=== PATIENT | female | born 1955 | race African-American/Black ===

== ENCOUNTER → 2017-01-03 | Outpatient (CLI) | payer OTHER ==
[~2017-01-03] MED LIST: AMMO12CR4 EXT; ASPI1TAB PO; ASPI81CH PO; BACL5TA PO; CIPR-250 PO; CIPR500T89 PO; CYCL5TA PO; FLAG500T PO; GABA-283 PO; INSUDET SC; INSUH10VL SC; INSULANT SC; LEVA750T PO; LIDO5TD TD; LISI-542 PO; NAPR1TAB86 PO; NEUR300C PO; NORC10TA2 PO; NORC5TAB PO; PERCOCET PO; PROP50TA3 PO; [UNRECOGNIZED DRUG - REMARK]; flexeril PO
[2017-01-03 14:20] LABS: MEAN CORPUSCULAR HEMOGLOBIN 31.3 pg (27.0-33.0); MEAN CORPUSCULAR HGB CONC 32.7 g/dl (32.0-36.5); MEAN CORPUSCULAR VOLUME 95.6 fl (80.0-96.0); RED CELL DISTRIBUTION WIDTH 13.2 % (11.5-14.5); WHITE BLOOD COUNT 9.2 K/mm3 (4.0-10.0)
[2017-01-03 14:40] LABS: ANION GAP 7 MEQ/L (8-16); BLOOD UREA NITROGEN 15 MG/DL (7-18); CALCIUM LEVEL 8.5 MG/DL (8.8-10.2); CARBON DIOXIDE LEVEL 27 MEQ/L (21-32); CHLORIDE LEVEL 109 MEQ/L (98-107); GLOMERULAR FILTRATION RATE > 60.0 (>45); GLUCOSE, FASTING 134 MG/DL (80-110); POTASSIUM SERUM 4.3 MEQ/L (3.5-5.1); SODIUM LEVEL 143 MEQ/L (136-145)
== END ==
LOC: M LAB 13:31
PROVIDERS: ATTEND Urology
DX: Q61.00 Congenital renal cyst, unspecified (principal)

== ENCOUNTER → 2017-01-03 | Outpatient (CLI) | payer OTHER ==
[2017-01-03 14:50] LABS: CHOLESTEROL LEVEL 145 MG/DL (<200); FREE T4 1.22 NG/DL (0.76-1.46); TRIGLYCERIDES LEVEL 143 MG/DL (<150)
[2017-01-09 00:06] LABS: FREE KAPPA LIGHT CHAINS SERUM 43.94 mg/L (3.30-19.40); FREE KAPPA LIGHT CHAINS URINE 36.3 mg/L (1.35-24.19); FREE LAMBDA LIGHT CHAINS SERUM 27.5 mg/L (5.71-26.30); FREE LAMBDA LIGHT CHAINS URINE 3.24 mg/L (0.24-6.66); KAPPA/LAMBDA RATIO SERUM 1.6 (0.26-1.65); VITAMIN D 1,25 DIHYDROXY 40.2 pg/mL (19.9-79.3)
== END ==
LOC: M LAB 13:34
PROVIDERS: ATTEND Hospitalist
DX: S32.000D Wedge compression fracture of unspecified lumbar vertebra, subsequent encounter for fracture with routine healing (principal)

== ENCOUNTER 2017-01-27 19:31 | Emergency (ER) | payer MEDICAID, OTHER, SELFPAY ==
[~2017-01-27] VITALS: Ht 180.3 cm; Wt 96.2 kg
[~2017-01-27 19:31] MED LIST changes: +NORC1TAB4 PO; -NORC5TAB PO
[2017-01-27 19:32] VITALS: BP 134/63
[2017-01-27] MEDS ORDERED: INSUDET SC (19:48)
[2017-01-27] MEDS ORDERED: VITA100037 PO (19:48)
[2017-01-27] MEDS ORDERED: ATOR40TA PO (19:48)
[2017-01-27] MEDS ORDERED: ETOD200C31 PO (20:33)
[2017-01-27] MEDS ORDERED: ROBA500T PO (20:34)
== END 2017-01-27 20:48 | disposition home or self-care (01) ==
LOC: M ED 20:29
DX: G89.29 Other chronic pain (principal); M54.5 Low back pain

== ENCOUNTER → 2017-03-29 | Outpatient (CLI) | payer OTHER, MEDICAID ==
[~2017-03-29] MED LIST changes: +ATOR40TA PO; +ETOD200C31 PO; +ROBA500T PO; +VITA100037 PO
[2017-03-29 17:41] LABS: ANION GAP 6 MEQ/L (8-16); BLOOD UREA NITROGEN 16 MG/DL (7-18); CALCIUM LEVEL 9.5 MG/DL (8.8-10.2); CARBON DIOXIDE LEVEL 29 MEQ/L (21-32); CHLORIDE LEVEL 105 MEQ/L (98-107); CREATININE FOR GFR 0.86 MG/DL (0.55-1.02); GLOMERULAR FILTRATION RATE > 60.0 (>45); GLUCOSE, FASTING 232 MG/DL (80-110); SODIUM LEVEL 140 MEQ/L (136-145)
[2017-03-29 17:42] LABS: POTASSIUM SERUM 5.3 MEQ/L (3.5-5.1)
[2017-03-29 18:26] LABS: MEAN CORPUSCULAR HEMOGLOBIN 32.1 pg (27.0-33.0); MEAN CORPUSCULAR HGB CONC 32.1 g/dl (32.0-36.5); MEAN CORPUSCULAR VOLUME 100.2 fl (80.0-96.0); RED CELL DISTRIBUTION WIDTH 13.5 % (11.5-14.5); WHITE BLOOD COUNT 8.4 K/mm3 (4.0-10.0)
== END ==
LOC: M SMT 14:40
PROVIDERS: ATTEND Urology
DX: N28.89 Other specified disorders of kidney and ureter (principal)

== ENCOUNTER → 2017-04-27 | Outpatient (CLI) | payer OTHER, MEDICAID ==
--- NOTE | 2017-04-27 15:04 | REP ---
LEFT SHOULDER, THREE VIEWS: HISTORY: Pain. There is no acute fracture or dislocation. There is narrowing of the acromioclavicular join space with associated osteophyte formation. IMPRESSION: Degenerative change as described above. Signed by Phani Morales MD 04/27/2017 03:08 P
[2017-04-27 15:55] LABS: ANION GAP 7 MEQ/L (8-16); BLOOD UREA NITROGEN 17 MG/DL (7-18); CALCIUM LEVEL 8.6 MG/DL (8.8-10.2); CARBON DIOXIDE LEVEL 27 MEQ/L (21-32); CHLORIDE LEVEL 109 MEQ/L (98-107); CHOLESTEROL LEVEL 150 MG/DL (<200); CREATININE FOR GFR 0.79 MG/DL (0.55-1.02); GLOMERULAR FILTRATION RATE > 60.0 (>45); GLUCOSE, FASTING 87 MG/DL (80-110); POTASSIUM SERUM 4.5 MEQ/L (3.5-5.1); SODIUM LEVEL 143 MEQ/L (136-145); TRIGLYCERIDES LEVEL 135 MG/DL (<150)
[2017-04-27 16:25] LABS: BASO % 0.4 % (0.0-1.0); EOS # 0.2 K/mm3 (0.0-0.50); EOS % 2.2 % (0.0-3.0); LARGE UNSTAINED CELL # 0.1 K/mm3 (0.0-0.4); LARGE UNSTAINED CELL % 1.6 % (0.0-4.0); LYMPH # 2.9 K/mm3 (1.5-4.5); LYMPH % 30.9 % (24.0-44.0); MEAN CORPUSCULAR HEMOGLOBIN 31.6 pg (27.0-33.0); MEAN CORPUSCULAR HGB CONC 32.7 g/dl (32.0-36.5); MEAN CORPUSCULAR VOLUME 96.8 fl (80.0-96.0); MONO # 0.6 K/mm3 (0.0-0.8); NEUTROPHILS # 5.2 K/mm3 (1.8-7.7); PLATELET COUNT, AUTOMATED 198 k/mm3 (150-450); RED CELL DISTRIBUTION WIDTH 13.9 % (11.5-14.5); WHITE BLOOD COUNT 8.9 K/mm3 (4.0-10.0)
[2017-04-27 16:35] LABS: ANION GAP 7 MEQ/L (8-16); BLOOD UREA NITROGEN 17 MG/DL (7-18); CALCIUM LEVEL 8.7 MG/DL (8.8-10.2); CARBON DIOXIDE LEVEL 27 MEQ/L (21-32); CHLORIDE LEVEL 111 MEQ/L (98-107); GLOMERULAR FILTRATION RATE > 60.0 (>45); GLUCOSE, FASTING 85 MG/DL (80-110); POTASSIUM SERUM 4.5 MEQ/L (3.5-5.1); SODIUM LEVEL 145 MEQ/L (136-145)
[2017-04-27 17:08] LABS: MEAN CORPUSCULAR HEMOGLOBIN 31.9 pg (27.0-33.0); MEAN CORPUSCULAR HGB CONC 32.5 g/dl (32.0-36.5); RED CELL DISTRIBUTION WIDTH 13.7 % (11.5-14.5); WHITE BLOOD COUNT 9.8 K/mm3 (4.0-10.0)
== END ==
LOC: M LAB 13:39
PROVIDERS: ATTEND Hospitalist
DX: E11.9 Type 2 diabetes mellitus without complications (principal); M25.512 Pain in left shoulder

== ENCOUNTER → 2017-06-21 | Outpatient (CLI) | payer MEDICARE, OTHER ==
[~2017-06-21] MED LIST changes: -ATOR40TA PO; +ATOR40TA75 PO; +BACL10TA5 PO; -BACL5TA PO; +CIPR-249 PO; -CIPR500T89 PO; +CYCL5TAB PO; +DULO1CAP3 PO; -LEVA750T PO; +LEVA750T7 PO; +LIPI10TA PO; +LORA10TA2 PO; -NORC10TA2 PO; +NORC10TA21 PO; +OXYC1TAB23 PO; +TOUJ1.2I SC; +TRUL0.5I SC; -VITA100037 PO; +VITA100067 PO
[2017-06-21 15:21] LABS: ANION GAP 5 MEQ/L (8-16); BLOOD UREA NITROGEN 15 MG/DL (7-18); CALCIUM LEVEL 8.6 MG/DL (8.8-10.2); CARBON DIOXIDE LEVEL 27 MEQ/L (21-32); CHLORIDE LEVEL 111 MEQ/L (98-107); CHOLESTEROL LEVEL 131 MG/DL (<200); CREATININE FOR GFR 0.84 MG/DL (0.55-1.02); GLOMERULAR FILTRATION RATE > 60.0 (>45); GLUCOSE, FASTING 48 MG/DL (80-110); POTASSIUM SERUM 4.3 MEQ/L (3.5-5.1); SODIUM LEVEL 143 MEQ/L (136-145); TRIGLYCERIDES LEVEL 83 MG/DL (<150)
[2017-06-21 15:49] LABS: BASO % 0.5 % (0.0-1.0); EOS # 0.3 K/mm3 (0.0-0.50); EOS % 3.1 % (0.0-3.0); LARGE UNSTAINED CELL # 0.2 K/mm3 (0.0-0.4); LARGE UNSTAINED CELL % 1.8 % (0.0-4.0); LYMPH # 3.4 K/mm3 (1.5-4.5); LYMPH % 32.7 % (24.0-44.0); MEAN CORPUSCULAR HEMOGLOBIN 31.6 pg (27.0-33.0); MEAN CORPUSCULAR HGB CONC 32.3 g/dl (32.0-36.5); MEAN CORPUSCULAR VOLUME 97.8 fl (80.0-96.0); MONO # 0.8 K/mm3 (0.0-0.8); MONO % 7.9 % (0.0-5.0); NEUTROPHILS # 5.3 K/mm3 (1.8-7.7); PLATELET COUNT, AUTOMATED 216 k/mm3 (150-450); RED CELL DISTRIBUTION WIDTH 14.4 % (11.5-14.5); WHITE BLOOD COUNT 9.8 K/mm3 (4.0-10.0)
== END ==
LOC: M LAB 14:08
DX: E11.9 Type 2 diabetes mellitus without complications (principal)

== ENCOUNTER → 2017-07-30 | Outpatient (CLI) | payer MEDICARE, OTHER ==
--- NOTE | 2017-07-30 15:35 | REPMRS ---
Patient History The patient states she has not had a clinical breast exam in over a year. Patient is postmenopausal and has history of other cancer at age 60. No known family history of cancer. Digital Mammo Screening Bilat: July 30, 2017 - Exam #: [id number] Bilateral CC and MLO view(s) were taken. Technologist: Alia Palmer Technologist Prior study comparison: July 14, 2016, bilateral digital mammo screening bilat performed at [facility]. FINDINGS: There are scattered fibroglandular densities. There has been no change in the appearance of the mammogram from the prior studies. There is a mild amount of residual fibroglandular tissue which is fairly symmetric. There is no interval development of dominant mass, architectural distortion, or clustered microcalcification suggestive of malignancy. ASSESSMENT: BI-RADS/ACR category 1 mammogram. Negative. Recommendation Routine screening mammogram in 1 year (for women over age 40). This mammogram was interpreted with the aid of an FDA-approved computer-aided dectection system. Electronically Signed By: Francesco Will MD 07/30/17 [id number]
== END ==
LOC: M RAD 07-09 10:37
PROVIDERS: ATTEND Hospitalist
DX: Z00.00 Encounter for general adult medical examination without abnormal findings (principal)

== ENCOUNTER 2017-08-16 07:13 | Outpatient (CLI) | payer MEDICARE, OTHER, MEDICAID ==
[~2017-08-16] VITALS: Ht 180.3 cm; Wt 104.3 kg
[2017-08-16] MEDS ORDERED: NS 1,000 ML IV SCH (07:30)
[2017-08-16] MEDS ORDERED: PROPOFOL 200 MG/20 ML VIAL As Ordered ONE (08:37)
[2017-08-16] MEDS ORDERED: LIDOCAINE 2% INJ 100 MG/5 ML SDV (FOR ANES.) As Ordered ONE (08:37)
--- NOTE | 2017-08-16 09:10 | ROOR ---
Patient Name: Chloe Chery Procedure Date: 08/16/2017 8:32 AM Date of : 1955 Age: 62 Room: [facility] Gender: Female Note Status: Finalized Procedure: Colonoscopy Indications: Screening for colorectal malignant neoplasm Providers: Conor Marcial Jr, MD Referring MD: Hyun Alarcon Requesting Provider: Medicines: Propofol per Anesthesia Complications: No immediate complications. Procedure: Pre-Anesthesia Assessment: - Prior to the procedure, a History and Physical was performed, and patient medications and allergies were reviewed. The patient is competent. The risks and benefits of the procedure and the sedation options and risks were discussed with the patient. All questions were answered and informed consent was obtained. Patient identification and proposed procedure were verified by the physician and the nurse in the pre-procedure area and in the procedure room. Mental Status Examination: alert and oriented. Airway Examination: normal oropharyngeal airway and neck mobility. Respiratory Examination: clear to auscultation. CV Examination: normal. ASA Grade Assessment: II - A patient with mild systemic disease. After reviewing the risks and benefits, the patient was deemed in satisfactory condition to undergo the procedure. The anesthesia plan was to use moderate sedation / analgesia (conscious sedation). Immediately prior to administration of medications, the patient was re-assessed for adequacy to receive sedatives. The heart rate, respiratory rate, oxygen saturations, blood pressure, adequacy of pulmonary ventilation, and response to care were monitored throughout the procedure. The physical status of the patient was re-assessed after the procedure. The Colonoscope was introduced through the anus and advanced to the cecum, identified by appendiceal orifice and ileocecal valve. The colonoscopy was performed without difficulty. The patient tolerated the procedure well. Findings: Five semi-sessile polyps were found in the rectum, sigmoid colon, descending colon, transverse colon and ascending colon. The polyps were small in size. These polyps were removed with a hot snare. Resection and retrieval were complete. Multiple small and large-mouthed diverticula were found in the sigmoid colon. The recto-sigmoid colon, cecum, appendiceal orifice, ileocecal valve and ileum appeared normal. Impression: - Five small polyps in the rectum, in the sigmoid colon, in the descending colon, in the transverse colon and in the ascending colon, removed with a hot snare. Resected and retrieved. - Diverticulosis in the sigmoid colon. - The recto-sigmoid colon, cecum, appendiceal orifice, ileocecal valve and terminal ileum are normal. Recommendation: - Discharge patient to home (ambulatory). - Repeat colonoscopy in 3 - 5 years for surveillance based on pathology results. Conor Marcial MD Conor Marcial Jr, MD 08/16/2017 9:09:43 AM This report has been signed electronically. Number of Addenda: 0 Note Initiated On: 08/16/2017 8:32 AM Estimated Blood Loss: Estimated blood loss: none.
[2017-08-16 09:31] VITALS: BP 174/85
== END 2017-08-16 09:40 | disposition home or self-care (01) ==
LOC: M OPP 07:13
PROVIDERS: ATTEND Surgery
DX: Z12.11 Encounter for screening for malignant neoplasm of colon (principal); K62.1 Rectal polyp; D12.5 Benign neoplasm of sigmoid colon; D12.4 Benign neoplasm of descending colon; D12.3 Benign neoplasm of transverse colon; D12.2 Benign neoplasm of ascending colon; K57.30 Diverticulosis of large intestine without perforation or abscess without bleeding; I10 Essential (primary) hypertension; E78.00 Pure hypercholesterolemia, unspecified; E11.9 Type 2 diabetes mellitus without complications; F17.210 Nicotine dependence, cigarettes, uncomplicated; M19.90 Unspecified osteoarthritis, unspecified site; M62.831 Muscle spasm of calf; M62.838 Other muscle spasm; K86.2 Cyst of pancreas; Z87.448 Personal history of other diseases of urinary system; Z90.5 Acquired absence of kidney; Z79.82 Long term (current) use of aspirin; Z79.4 Long term (current) use of insulin; Z79.891 Long term (current) use of opiate analgesic; Z79.899 Other long term (current) drug therapy; Z88.6 Allergy status to analgesic agent

== ENCOUNTER 2017-12-24 17:35 | Emergency (ER) | payer MEDICARE, MEDICAID, OTHER ==
[2017-12-24] MEDS ORDERED: KETOROLAC 30 MG/ML VIAL (J1885) IV ×2 (18:30)
[2017-12-24] MEDS: CYCLOBENZAPRINE 5MG TABLET PO ×2 (18:35)
[2017-12-24] MEDS: KETOROLAC 30 MG/ML VIAL (J1885) IV ×2 (18:35)
[2017-12-24 18:47] LABS: BASO % 0.2 % (0.0-1.0); EOS # 0.2 10^3/uL (0.0-0.50); EOS % 1.4 % (0.0-3.0); HEMOGLOBIN 13.7 g/dl (12.0-16.0); IMMATURE GRANULOCYTE % 0.3 % (0-3.0); LYMPH # 2.3 10^3/uL (1.5-4.5); LYMPH % 20.3 % (24.0-44.0); MEAN CORPUSCULAR HEMOGLOBIN 30.7 pg (27.0-33.0); MEAN CORPUSCULAR HGB CONC 32.6 g/dl (32.0-36.5); MEAN CORPUSCULAR VOLUME 94.2 fl (80.0-96.0); MONO # 1.1 10^3/uL (0.0-0.8); MONO % 9.4 % (0.0-5.0); NEUTROPHILS # 7.9 10^3/uL (1.8-7.7); NEUTROPHILS % 68.4 % (36.0-66.0); PLATELET COUNT, AUTOMATED 208 10^3/uL (150-450); RED BLOOD COUNT 4.46 10^6/uL (4.00-5.40); RED CELL DISTRIBUTION WIDTH 13.6 % (11.5-14.5); WHITE BLOOD COUNT 11.5 10^3/uL (4.0-10.0)
[2017-12-24 19:01] LABS: ALBUMIN 3.2 GM/DL (3.2-5.2); ALBUMIN/GLOBULIN RATIO 0.78 (1.00-1.93); ALKALINE PHOSPHATASE 125 U/L (45-117); ALT/SGPT 25 U/L (12-78); ANION GAP 7 MEQ/L (8-16); AST/SGOT 24 U/L (7-37); BILIRUBIN,DIRECT < 0.1 MG/DL (0.0-0.2); BILIRUBIN,TOTAL 0.4 MG/DL (0.2-1.0); BLOOD UREA NITROGEN 15 MG/DL (7-18); CALCIUM LEVEL 8.9 MG/DL (8.8-10.2); CARBON DIOXIDE LEVEL 26 MEQ/L (21-32); CHLORIDE LEVEL 103 MEQ/L (98-107); GLOMERULAR FILTRATION RATE > 60.0 (>45); GLUCOSE, FASTING 333 MG/DL (70-100); LIPASE 198 U/L (73-393); SODIUM LEVEL 136 MEQ/L (136-145); TOTAL PROTEIN 7.3 GM/DL (6.4-8.2)
[2017-12-24 19:02] LABS: POTASSIUM SERUM 5.2 MEQ/L (3.5-5.1)
[2017-12-24 19:34] LABS: LACTIC ACID SEPSIS PROTOCOL 0.9 MMOL/L (0.4-2.0)
== END 2017-12-24 20:00 | disposition home or self-care (01) ==
LOC: M ED 17:35
DX: G89.29 Other chronic pain (principal); M54.5 Low back pain; R10.9 Unspecified abdominal pain; E11.9 Type 2 diabetes mellitus without complications; E05.00 Thyrotoxicosis with diffuse goiter without thyrotoxic crisis or storm; Z85.528 Personal history of other malignant neoplasm of kidney; Z90.5 Acquired absence of kidney; Z79.899 Other long term (current) drug therapy; Z79.82 Long term (current) use of aspirin; Z79.4 Long term (current) use of insulin; F17.210 Nicotine dependence, cigarettes, uncomplicated
CPT/HCPCS: J1885

== ENCOUNTER → 2018-01-01 | Outpatient (CLI) | payer MEDICARE, MEDICAID | LOC: M RAD 07:46 | DX: R10.84 Generalized abdominal pain (principal) | CPT/HCPCS: 76705 ==

== ENCOUNTER → 2018-04-16 | Outpatient (REF) | payer MEDICARE ==
[2018-04-16 19:18] LABS: MAU/CREAT RATIO 50.8 MCG/MG (0.0-30.0)
== END ==
LOC: M SFHCPLAZ 14:41
DX: E11.9 Type 2 diabetes mellitus without complications (principal); E05.00 Thyrotoxicosis with diffuse goiter without thyrotoxic crisis or storm
CPT/HCPCS: 82043

== ENCOUNTER → 2018-05-02 | Outpatient (REF) | payer MEDICARE ==
[2018-05-02 17:15] LABS: BASO % 0.2 % (0.0-1.0); EOS # 0.2 10^3/uL (0.0-0.50); HEMATOCRIT 41.1 % (36.0-47.0); HEMOGLOBIN 13.6 g/dl (12.0-15.5); IMMATURE GRANULOCYTE % 0.4 % (0-3.0); LYMPH # 2.2 10^3/uL (1.5-4.5); LYMPH % 21.9 % (24.0-44.0); MEAN CORPUSCULAR HEMOGLOBIN 31.1 pg (27.0-33.0); MEAN CORPUSCULAR HGB CONC 33.1 g/dl (32.0-36.5); MEAN CORPUSCULAR VOLUME 93.8 fl (80.0-96.0); MONO # 0.8 10^3/uL (0.0-0.8); MONO % 7.9 % (0.0-5.0); NEUTROPHILS # 6.8 10^3/uL (1.8-7.7); NEUTROPHILS % 67.6 % (36.0-66.0); PLATELET COUNT, AUTOMATED 197 10^3/uL (150-450); RED BLOOD COUNT 4.38 10^6/uL (4.00-5.40); RED CELL DISTRIBUTION WIDTH 13.2 % (11.5-14.5); WHITE BLOOD COUNT 10.1 10^3/uL (4.0-10.0)
[2018-05-02 17:22] LABS: ESTIMATED AVERAGE GLUCOSE 226 MG/DL (60-110); HEMOGLOBIN A1c 9.5 %
[2018-05-02 17:25] LABS: ANION GAP 10 MEQ/L (8-16); BLOOD UREA NITROGEN 26 MG/DL (7-18); CALCIUM LEVEL 8.7 MG/DL (8.8-10.2); CARBON DIOXIDE LEVEL 23 MEQ/L (21-32); CHLORIDE LEVEL 107 MEQ/L (98-107); CREATININE FOR GFR 0.96 MG/DL (0.55-1.30); FREE T4 1.09 NG/DL (0.76-1.46); GLOMERULAR FILTRATION RATE > 60.0 (>45); GLUCOSE, FASTING 308 MG/DL (70-100); POTASSIUM SERUM 4.6 MEQ/L (3.5-5.1); SODIUM LEVEL 140 MEQ/L (136-145); THYROID STIMULATING HORMONE < 0.005 uIU/ML (0.358-3.740)
[2018-05-02 18:05] LABS: MAU/CREAT RATIO 106.9 MCG/MG (0.0-30.0)
[2018-05-02 22:18] LABS: TOTAL T3 112.3 NG/DL (60.0-181.0)
[2018-05-03 10:43] LABS: THYROID PEROXIDASE ANTIBODY < 28.0 U/ML (<60.0)
[2018-05-06 00:07] LABS: THYROID STIMULATING IMMUNOGLOB 0.64 IU/L (0.00-0.55)
[2018-05-06 00:07] LABS: TSH RECEPTOR ASSAY 3.64 IU/L (0.00-1.75)
== END ==
LOC: M SFHCPLAZ 12:51
DX: E11.9 Type 2 diabetes mellitus without complications (principal); E05.90 Thyrotoxicosis, unspecified without thyrotoxic crisis or storm
CPT/HCPCS: 84443

== ENCOUNTER → 2018-07-10 | Outpatient (REF) | payer MEDICARE ==
[2018-07-10 12:14] LABS: HEMATOCRIT 37.8 % (36.0-47.0); MEAN CORPUSCULAR HEMOGLOBIN 31.1 pg (27.0-33.0); MEAN CORPUSCULAR HGB CONC 31.7 g/dl (32.0-36.5); MEAN CORPUSCULAR VOLUME 97.9 fl (80.0-96.0); PLATELET COUNT, AUTOMATED 191 10^3/uL (150-450); RED BLOOD COUNT 3.86 10^6/uL (4.00-5.40); WHITE BLOOD COUNT 8.8 10^3/uL (4.0-10.0)
[2018-07-10 12:41] LABS: ALBUMIN 3.1 GM/DL (3.2-5.2); ALBUMIN/GLOBULIN RATIO 0.82 (1.00-1.93); ALKALINE PHOSPHATASE 151 U/L (45-117); ALT/SGPT 39 U/L (12-78); ANION GAP 9 MEQ/L (8-16); AST/SGOT 25 U/L (7-37); BILIRUBIN,TOTAL 0.3 MG/DL (0.2-1.0); BLOOD UREA NITROGEN 22 MG/DL (7-18); CALCIUM LEVEL 8.5 MG/DL (8.8-10.2); CARBON DIOXIDE LEVEL 25 MEQ/L (21-32); CHLORIDE LEVEL 105 MEQ/L (98-107); CREATININE FOR GFR 0.91 MG/DL (0.55-1.30); GLOMERULAR FILTRATION RATE > 60.0 (>45); SODIUM LEVEL 139 MEQ/L (136-145); TOTAL PROTEIN 6.9 GM/DL (6.4-8.2)
[2018-07-10 12:50] LABS: GLUCOSE, FASTING 435 MG/DL (70-100)
== END ==
LOC: M LABDRAWP 11:52
DX: Z01.818 Encounter for other preprocedural examination (principal)
CPT/HCPCS: 80053

== ENCOUNTER → 2018-08-29 | Outpatient (CLI) | payer MEDICARE | LOC: M WHC 09:16 | DX: Z12.31 Encounter for screening mammogram for malignant neoplasm of breast (principal); Z85.53 Personal history of malignant neoplasm of renal pelvis | CPT/HCPCS: 77067 ==

== ENCOUNTER 2018-10-09 15:01 | Emergency (ER) | payer MEDICARE ==
[2018-10-09] MEDS: PERCOCET 5MG/325MG TAB PO (15:30)
[2018-10-09 18:14] LABS: BEDSIDE GLUCOSE 235 MG/DL (80-115)
== END 2018-10-09 19:49 | disposition home or self-care (01) ==
LOC: M ED 15:01
DX: S00.81XA Abrasion of other part of head, initial encounter (principal); S80.02XA Contusion of left knee, initial encounter; W00.0XXA Fall on same level due to ice and snow, initial encounter; Y92.481 Parking lot as the place of occurrence of the external cause; R51 Headache; E11.9 Type 2 diabetes mellitus without complications; I10 Essential (primary) hypertension; E78.9 Disorder of lipoprotein metabolism, unspecified; E05.00 Thyrotoxicosis with diffuse goiter without thyrotoxic crisis or storm; Z85.528 Personal history of other malignant neoplasm of kidney; F17.200 Nicotine dependence, unspecified, uncomplicated; Z79.899 Other long term (current) drug therapy; Z79.891 Long term (current) use of opiate analgesic; Z79.4 Long term (current) use of insulin; Z79.82 Long term (current) use of aspirin
CPT/HCPCS: 73564

== ENCOUNTER → 2018-12-04 | Outpatient (CLI) | payer MEDICARE ==
[~2018-12-04] MED LIST changes: -BACL10TA5 PO; +BACL10TA8 PO; -GABA-283 PO; +GABA-845 PO; +LORA-243 PO; -LORA10TA2 PO
[2018-12-04 17:26] LABS: HEMATOCRIT 39.6 % (36.0-47.0); MEAN CORPUSCULAR HEMOGLOBIN 29.6 pg (27.0-33.0); MEAN CORPUSCULAR HGB CONC 30.3 g/dl (32.0-36.5); MEAN CORPUSCULAR VOLUME 97.8 fl (80.0-96.0); PLATELET COUNT, AUTOMATED 277 10^3/uL (150-450); RED BLOOD COUNT 4.05 10^6/uL (4.00-5.40)
[2018-12-04 17:30] LABS: ALBUMIN 3.3 GM/DL (3.2-5.2); BILIRUBIN,TOTAL 0.2 MG/DL (0.2-1.0); CALCIUM LEVEL 8.6 MG/DL (8.8-10.2); CREATININE FOR GFR 1.25 MG/DL (0.55-1.30); FREE T4 1.34 NG/DL (0.76-1.46); GLOMERULAR FILTRATION RATE 55.5 (>45); POTASSIUM SERUM 3.9 MEQ/L (3.5-5.1); THYROID STIMULATING HORMONE 0.007 uIU/ML (0.358-3.740); TOTAL PROTEIN 6.9 GM/DL (6.4-8.2)
[2018-12-04 17:48] LABS: HEMOGLOBIN A1c 9.8 %
== END ==
LOC: M WUC 11:48
PROVIDERS: ATTEND Obstetrics & Gynecology
DX: E05.00 Thyrotoxicosis with diffuse goiter without thyrotoxic crisis or storm (principal); E11.29 Type 2 diabetes mellitus with other diabetic kidney complication

== ENCOUNTER → 2019-05-27 | Outpatient (REF) | payer MEDICARE, MEDICAID ==
[~2019-05-27] MED LIST changes: -AMMO12CR4 EXT; +AMMO12CR7 EXT; -ASPI1TAB PO; -ASPI81CH PO; +ASPI81CH49 PO; +ASPI81TA26 PO; -CYCL5TA PO; +CYCL5TAB5 PO; -DULO1CAP3 PO; +DULO1CAP6 PO; -NORC10TA21 PO; -NORC1TAB4 PO; +NORC1TAB5 PO; +NORC1TAB7 PO
[2019-05-27 16:01] LABS: FREE T4 0.89 NG/DL (0.76-1.46); THYROID STIMULATING HORMONE 0.356 uIU/ML (0.358-3.740)
== END ==
LOC: M LABDRAW1 11:05
PROVIDERS: ATTEND Nurse Practitioner Family
DX: E05.00 Thyrotoxicosis with diffuse goiter without thyrotoxic crisis or storm (principal)

== ENCOUNTER → 2019-06-02 | Outpatient (REF) | payer MEDICARE, MEDICAID ==
[2019-06-02 16:30] LABS: HEMATOCRIT 44.1 % (36.0-47.0); HEMOGLOBIN 14.1 g/dl (12.0-15.5); MEAN CORPUSCULAR HEMOGLOBIN 30.9 pg (27.0-33.0); MEAN CORPUSCULAR VOLUME 96.5 fl (80.0-96.0); PLATELET COUNT, AUTOMATED 209 10^3/uL (150-450); RED BLOOD COUNT 4.57 10^6/uL (4.00-5.40); WHITE BLOOD COUNT 10.3 10^3/uL (4.0-10.0)
[2019-06-02 16:43] LABS: BLOOD UREA NITROGEN 22 MG/DL (7-18); CALCIUM LEVEL 9.1 MG/DL (8.8-10.2); CARBON DIOXIDE LEVEL 28 MEQ/L (21-32); CHLORIDE LEVEL 110 MEQ/L (98-107); CHOLESTEROL LEVEL 176 MG/DL (<200); CREATININE FOR GFR 1.65 MG/DL (0.55-1.30); GLOMERULAR FILTRATION RATE 40.1 (>45); GLUCOSE, FASTING 181 MG/DL (70-100); HDL CHOLESTEROL 64 MG/DL (>40); IMMUNOGLOBULIN G 1320 MG/DL (681-1648); IMMUNOGLOBULIN M 61.3 MG/DL (40-230); LDH LACTATE DEHYDROGENASE 241 U/L (84-246); LDL CHOLESTEROL 50 MG/DL (<100); NON-HDL-C 112 MG/DL; POTASSIUM SERUM 4.3 MEQ/L (3.5-5.1); SODIUM LEVEL 143 MEQ/L (136-145); TRIGLYCERIDES LEVEL 309 MG/DL (<150)
[2019-06-03 12:09] LABS: ALBUMIN % 51.2 % (55.8-66.1); ALPHA-1-GLOBULIN % 4.8 % (2.9-4.9); ALPHA-1-GLOBULINS 0.38 GM/DL (0.17-0.41); ALPHA-2-GLOBULINS 1.12 GM/DL (0.42-0.99); BETA-1-GLOBULINS 0.46 GM/DL (0.28-0.60); BETA-1-GLOBULINS % 5.8 % (4.7-7.2); BETA-2-GLOBULINS 0.59 GM/DL (0.19-0.55); BETA-2-GLOBULINS % 7.4 % (3.2-6.5); GAMMA GLOBULIN % 16.8 % (11.1-18.8); GAMMA GLOBULINS 1.34 GM/DL (0.65-1.58)
[2019-06-05 00:06] LABS: BETA 2 MICROGLOBULIN 3.5 mg/L (0.6-2.4); FREE KAPPA LIGHT CHAINS SERUM 65.1 mg/L (3.3-19.4); FREE LAMBDA LIGHT CHAINS SERUM 30.2 mg/L (5.7-26.3); KAPPA/LAMBDA RATIO SERUM 2.16 (0.26-1.65)
== END ==
LOC: M SFHCPLAZ 14:02
PROVIDERS: ATTEND Obstetrics & Gynecology
DX: E78.00 Pure hypercholesterolemia, unspecified (principal)

== ENCOUNTER → 2019-06-09 | Outpatient (CLI) | payer MEDICAID, MEDICARE ==
--- NOTE | 2019-06-09 16:08 | REP ---
Clinical: Acute renal insufficiency. Technique: Real time davison scale ultrasound examination using curved array transducer. Findings: Kidneys are normal in contour, size, echogenicity, and reniform shape without hydronephrosis, nephrolithiasis, cystic or renal mass lesion. No perinephric fluid collection. Right kidney measures 11.9 x 5.4 x 4.3 cm. Left kidney measures 13.2 x 5.6 x 4.9 cm. Bladder is collapsed. Impression: Normal appearance the bilateral kidneys. Electronically Signed by Rosas Hughes MD 06/09/2019 04:00 P
== END ==
LOC: M RAD 14:57
PROVIDERS: ATTEND Obstetrics & Gynecology
DX: N17.9 Acute kidney failure, unspecified (principal)

== ENCOUNTER → 2019-07-07 | Outpatient (CLI) | payer MEDICARE ==
[2019-07-07 13:53] LABS: CHOLESTEROL RISK RATIO 2.653 (<5)
== END ==
LOC: M WUC 11:39
PROVIDERS: ATTEND Obstetrics & Gynecology
DX: E78.00 Pure hypercholesterolemia, unspecified (principal)

== ENCOUNTER 2019-09-01 19:46 | Inpatient (IN) | payer MEDICARE ==
[~2019-09-01] VITALS: Ht 180.3 cm; Wt 114.8 kg
[2019-09-01] MEDS ORDERED: ACETAMINOPHEN TAB 650MG DOSE (2X325MG) PO PRN (20:15)
[2019-09-01 22:21] VITALS: BP 137/64
[2019-09-01] MEDS: D5W/0.9% SODIUM CHLORIDE 1,000 ML IV SCH (22:41)
[2019-09-01 22:52] LABS: HEMATOCRIT 39.7 % (36.0-47.0); HEMOGLOBIN 12.3 g/dl (12.0-15.5); MEAN CORPUSCULAR HEMOGLOBIN 30.8 pg (27.0-33.0); MEAN CORPUSCULAR VOLUME 99.5 fl (80.0-96.0); PLATELET COUNT, AUTOMATED 163 10^3/uL (150-450); RED BLOOD COUNT 3.99 10^6/uL (4.00-5.40); WHITE BLOOD COUNT 15.5 10^3/uL (4.0-10.0)
[2019-09-01 23:15] LABS: AMPHETAMINES LEVEL URINE NEGATIVE (NEGATIVE); BARBITURATES URINE NEGATIVE (NEGATIVE); BENZODIAZEPINES URINE NEGATIVE (NEGATIVE); CANNABINOIDS URINE NEGATIVE (NEGATIVE); COCAINE METABOLITE URINE NEGATIVE (NEGATIVE); METHADONE URINE NEGATIVE (NEGATIVE); OPIATES URINE POSITIVE (NEGATIVE); PHENCYCLIDINE URINE NEGATIVE (NEGATIVE)
[2019-09-01 23:18] LABS: ALBUMIN 3.5 GM/DL (3.2-5.2); BILIRUBIN,TOTAL 0.5 MG/DL (0.2-1.0); CALCIUM LEVEL 7.1 MG/DL (8.8-10.2); CREATININE FOR GFR 3.95 MG/DL (0.55-1.30); GLOMERULAR FILTRATION RATE 14.7 (>45); POTASSIUM SERUM 5.6 MEQ/L (3.5-5.1); TOTAL PROTEIN 7.5 GM/DL (6.4-8.2)
[2019-09-02] VITALS (7 sets, daily range): BP systolic 117–163; BP diastolic 58–88
[2019-09-02] MEDS: cefTRIAXone SOD 2 GM in D5W MINI-BAG PLUS 50 ML IV SCH ×3 (00:12→23:01)
[2019-09-02] MEDS ORDERED: METH10TA PO (00:35)
[2019-09-02] MEDS ORDERED: D-10TAB2 PO (00:35)
[2019-09-02] MEDS ORDERED: TIZA2TAB4 PO (00:35)
[2019-09-02] MEDS ORDERED: JANU50TA25 PO (00:35)
[2019-09-02] MEDS ORDERED: INSUDET SC (00:35)
[2019-09-02] MEDS ORDERED: TRUL10IN SC (00:35)
[2019-09-02] MEDS ORDERED: METF-791 PO (00:35)
[2019-09-02] MEDS ORDERED: ASPI-161 PO (00:35)
[2019-09-02] MEDS ORDERED: tiZANidine 4 MG TAB PO PRN ×2 (01:00→12:15)
[2019-09-02] MEDS: PERCOCET 5MG/325MG TAB PO PRN ×3 (01:08→14:26)
[2019-09-02] MEDS: GABAPENTIN 100 MG CAP PO SCH ×3 (01:19→16:28)
--- NOTE | 2019-09-02 01:30 | HPEPDOC ---
General Date of Admission 09/01/2019 Date of Service: Sep 01, 2019 Attending Physician: LAVELL BARKSDALE MD Chief Complaint The patient is a 64-year-old female admitted with a reason for visit of Symptomatic Hypoglycemia. Source: Patient, RN/MD (Dr. Griffin from [place] ) Exam Limitations: No limitations Timing/Duration: 4-6 hours Severity: Severe Associated Symptoms: Syncope, Other (Unresponsive) History of Present Illness 64 yo woman with a history of Graves disease on PTU and methimazole, hypertension, history of renal cell carcinoma s/p partial right nephrectomy and IDDM on lantus BID and recently started on trulicity yesterday who presented to [facility] this afternoon after being found unresponsive and found to be hypoglycemic to FSBG 20s and with persistent hypoglycemia at [place] thus now being transferred to [facility]. Per Dr. Stahl of [place], Ms. Chery is usually on lantus BID and was started on trulicity yesterday. Today she was babysitting her 3 year old granddaughter when the 13 year old returned from school and found her grandmother unresponsive and called her mother who activated EMS. Most notable, EMS found her with a blood glucose in the 20s and on reaching [place] she was given D10 boluses as they did not have D50 with transient improvement in FSBG and clinically but would have repeated hypoglycemic episodes and thus the call to [facility]. Initial work up at [place] according to Dr. Griffin was notable hypothermis to ~97, while normotensive without tachycardia, bradycardia or hypoxemia. She had Bairhugger placed that was discontinued after she became normothermic. Studies were notable for an TATIANA with Cr 4.25 with last known Cr in 2016 in our EMR being 0.73, WBC 14.6, low TSH with T4 of 4.3, lactate 2.[address] that was negative for acute pathology. I advised to have her started on D5NS at 150cc/hr for transport to [facility]. On arrival to [facility], she arrived hemodynamically stable, normothermic, normoglycemic, alert and oriented reporting 8/10 left sided lower back pain that she reports to be a baseline issue and requesting her home medications that she has not taken today. She arrived with her son and corroborates the story above that she was watching her twin 3 year old grandchildren and may have been down for up to an hour before the middle school grandchild found her after school, though the son thinks it may have been just a few minutes. He reports prior to the episode having felt at her recent baseline with no issues but felt faint immediately before she collapsed and does not remember what happened. Her med rec includes lantus 80 QHS, metformin, janumet, likely remote script for metformin, and trulicity that she took the first dose yesterday. She otherwise denies a history of seizures, fever, chills, cough, congestion, recent travel, chest pain, palpitations, dysuria, hematuria, hematochezia, melena, open skin lesions or recent changes to her methimazole. Home Medications Scheduled Aspirin (Aspirin EC) 81 Mg Tablet.dr, 81 MG PO DAILY, (Reported) Atorvastatin Calcium (Lipitor) 10 Mg Tab, 10 MG PO DAILY, (Reported) Cholecalciferol (Vitamin D3) (Vitamin D3) 1,000 Unit Tablet, 1,000 UNIT PO DAILY, (Reported) Dulaglutide (Trulicity) 0.75 Mg/0.5 Ml Pen.injctr, 0.75 MG SC 1XWK, (Reported) SUNDAY Duloxetine Hcl (Duloxetine HCl) 60 Mg Cap, 60 MG PO DAILY, (Reported) Gabapentin (Gabapentin) 400 Mg Cap, 400 MG PO TID, (Reported) Insulin Detemir (Levemir) 100 Unit/1 Ml Vial, 40 UNITS SC BID, (Reported) Insulin Human Lispro (Novolog) 100 U/Ml Inj, 1 DOSE SC AC, (Reported) PER SLIDING SCALE Lisinopril (Lisinopril) 5 Mg Tab, 5 MG PO DAILY, (Reported) Loratadine (Loratadine) 10 Mg Tab, 10 MG PO DAILY, (Reported) Metformin HCl (Metformin HCl ER) 500 Mg Tab.er.24h, 1,000 MG PO DAILY, (Reported) Methimazole (Methimazole) 10 Mg Tablet, 10 MG PO DAILY, (Reported) Sitagliptin Phos/Metformin HCl (Janumet Xr 50-1,000 mg Tablet) 1 Each Tbmp.24hr, 2 TAB PO QPM, (Reported) Scheduled PRN Oxycodone HCl/Acetaminophen (Oxycodone-Acetaminophen 5-325) 1 Tab Tab, 1 TAB PO Q6H PRN for PAIN, (Reported) Tizanidine HCl (Tizanidine HCl) 2 Mg Tablet, 2 MG PO TID PRN for MUSCLE SPASMS, (Reported) Allergies Coded Allergies: No Known Allergies (Unverified , 12/24/17) Past Medical History Medical History Graves Hypertension Diabetes c/b peripheral neuropathy Renal cell carcinoma s/p right partial nephrectomy chronic back pain DJD History of pancreatitis in 2018 History of +cocaine, marijuana and opiates Surgical History Partial nephrectomy Family History Father - from alcohol use disorder complications Mother - from complications of dementia Sister - CAD Sister - carcinoma Social History * Smoker: current smoker Alcohol: Denies Drugs: denies (however, has a history of +cocaine, marijuana and opiates on prior tox screens) Recent Travel/Sick Contacts: Denies: Recent travel, Recent sick contacts Psychosocial History: No pertinent psych hx Smoker - had quit for 10y but restarted on 2015 Alcohol - denies Illicit drug use - though EMR notes history of positive tox screens prior A-FIB/CHADSVASC A-FIB History Current/History of A-Fib/PAF?: No Current PO Anticoag Therapy: No Age/Risk Factor Scoring CHADSVASC: CHADSVASC Response (Comments) Value Age Risk Factor Age 65-74 years old 1 Gender Risk Factor Female 1 Hx of CHF No 0 Hx of HTN Yes 1 Hx of Stroke/TIA/or VTE No 0 Hx of Diabetes Yes 1 Hx of Vascular Disease No 0 Total 4 Treatment Treatment ordered: NONE Reason Anticoagulant not given: Not indicated/[id number] Review of Systems Constitutional: Denies: Chills, Fever, Night Sweats, Weakness, Fatigue, Weight Loss Eyes: Denies: Pain, Vision change ENT: Denies: Head Aches, Ear Pain, Dysphagia Skin: Denies: Rash, Lesions, Jaundice, Bruising, Breakdown, Nail Changes Pulmonary: Denies: Dyspnea, Cough, Pleuritic Chest Pain Cardiovascular: Reports: Edema (sometimes has bilateral ankle swelling); Denies: Chest Pain, Palpitations, Orthopnea, Paroxysmal Noc. Dyspnea, Lt Headedness Gastrointestinal: Denies: Nausea, Vomiting, Abdominal Pain, Diarrhea, Constipation, Melena, Hematochezia Genitourinary: Denies: Dysuria, Frequency, Incontinence, Hematuria, Retention Hematologic: Denies: Bruising, Bleeding Excessively Endocrine: Denies: Polydipsia, Polyphagia, Polyuria, Heat Intolerance, Cold Intolerance, Other Endocrine Sx Musculoskeletal: Reports: Back Pain (severe 8/10 left back pain that usually responds well to her jak and oxy/APAP that she has not taken in a few hours now), Spasms; Denies: Neck Pain, Shoulder Pain, Leg Pain Neurological: Denies: Weakness, Numbness, Change in speech, Confusion, Seizures Psych: Reports: Mood Normal; Denies: Anxiety, Depression, Memory Issues Physical Examination General Exam: Positive: Alert, Mild Distress (leaning towards her right, reporting severe left lower back pain that is chronic and has not taken her medications in hours) Eye Exam: Positive: PERRLA, Conjunctiva & lids normal, EOMI, Other Eye Symptoms (bilateral exophthalmos); Negative: Sclera icteric, Ptosis ENT Exam: Positive: Atraumatic, Mucous membr. moist/pink, Pharynx Normal, Tongue Midline, Nares Patent Neck Exam: Positive: Supple; Negative: JVD, Lymphadenopathy Chest Exam: Positive: Clear to auscultation, Normal air movement; Negative: Rales, Rhonchi, Wheezing Heart Exam: Positive: Rate Normal, Regular Rhythm, Normal S1, Normal S2; Negative: Murmurs, Rubs Telemetry: Positive: No significant arrhythmia, Sinus Abdomen Exam: Positive: Normal bowel sounds, Soft, Other (obese, otherwise soft, non tender with normoactive bowel sounds); Negative: Tenderness, Hepatospenomegaly Extremity Exam: Positive: Edema (bilateral trace ankle edema), Normal pulses, Other (some small superficial skin peeling of right toes, otherwise no onychomycosis or significant lesions); Negative: Clubbing, Cyanosis Skin Exam: Positive: Other skin issue (some skin peeling of R sided toes with no lesions) Neuro Exam: Positive: Normal Speech, Strength at 5/5 X4 ext, Normal Tone, Sensation Intact, Cranial Nerves 3-12 NL Psych Exam: Positive: Mental status NL, Mood NL, Oriented x 3 Vital Signs Vital Signs Date Time Temp Pulse Resp B/P (MAP) Pulse Ox O2 Delivery O2 Flow Rate FiO2 09/02/19 00:00 97.7 85 18 120/88 (99) 94 Room Air 09/01/19 22:21 96.6 81 14 137/64 (88) 97 Room Air Intake & Output 09/02/19 05:59 Intake Total 400 ml Output Total 200 ml Balance 200 ml Laboratory Tests 09/01/19 22:18: Bedside Glucose (Misc Panel) 100 09/01/19 22:30: Urine Color YELLOW, Urine Appearance CLOUDYH, Urine pH 5.0, Urine Specific Chalmers 1.010, Urine Protein NEGATIVE, Urine Glucose (UA) NEGATIVE, Urine Ketones NEGATIVE, Urine Blood NEGATIVE, Urine Nitrite NEGATIVE, Urine Bilirubin NEGATIVE, Urine Urobilinogen 0.2, Urine Leukocyte Esterase 2+H, Urine WBC (Auto) 11H, Urine RBC (Auto) 1, Urine Hyaline Casts (Auto) 0, Urine Bacteria (Auto) 3+H, Urine Squamous Epithelial Cells 10, Urine Sperm (Auto) , Urine Opiates Screen POSITIVEH, Urine Methadone Screen NEGATIVE, Urine Barbiturates Screen NEGATIVE, Urine Phencyclidine Screen NEGATIVE, Urine Amphetamines Screen NEGATIVE, Urine Benzodiazepines Screen NEGATIVE, Urine Cocaine Metabolite Screen NEGATIVE, Urine Cannabinoids Screen NEGATIVE 09/01/19 22:41: White Blood Count 15.5H, Red Blood Count 3.99L, Hemoglobin 12.3, Hematocrit 39.7, Mean Corpuscular Volume 99.5H, Mean Corpuscular Hemoglobin 30.8, Mean Corpuscular Hemoglobin Concent 31.0L, Red Cell Distribution Width 13.6, Platelet Count 163, Nucleated Red Blood Cells % (auto) 0.0, Sodium Level 137, Potassium Level 5.6H, Chloride Level 106, Carbon Dioxide Level 14L, Anion Gap 17H, Blood Urea Nitrogen 46H, Creatinine 3.95H, Glomerular Filtration Rate 14.7L, Fasting Glucose 89, Lactic Acid Level 2.6*H, Calcium Level 7.1L, Total Bilirubin 0.5, Aspartate Amino Transf (AST/SGOT) 24, Alanine Aminotransferase (ALT/SGPT) 35, Alkaline Phosphatase 112, Total Creatine Kinase 142, Total Protein 7.5, Albumin 3.5, Albumin/Globulin Ratio 0.88L 09/01/19 22:56: Bedside Glucose (Misc Panel) 91 09/01/19 23:55: Bedside Glucose (Misc Panel) 73L 09/02/19 00:54: Bedside Glucose (Misc Panel) 110 Current Medications Medications (Trade) Dose Ordered Sig/Pilar Route PRN Reason Start Time Stop Time Status Last Admin Dose Admin Ceftriaxone Sodium 2 gm/ Dextrose 50 ml @ 100 mls/hr Q12H IV 09/02/19 00:00 09/02/19 00:12 100 MLS/HR Dextrose/Sodium Chloride 1,000 ml @ 125 mls/hr Q8H IV 09/01/19 20:30 09/01/19 22:41 125 MLS/HR Assessment/Plan 64 yo woman with a history of Graves on PTU and methimazole, hypertension, HLD, renal cell carcinoma s/p remote partial right nephrectomy with last known renal function to be within normal limits and diabetes on insulin and recently started on trulicity yesterday who was brought in to [place] after being found unresponsive while babysitting her grandchild and noted to have severe hypoglycemia and hypothermia, and TATIANA on labs at [place] now being transferred to [facility] for management of persistent hypoglycemia and hypothermia c/f sepsis with plan for ICU admission. Symptomatic hypoglycemia: -D5NS @ 150cc/hr, s/p 2L NS at [place] -CBC -CMP -Q1H FSBG overnight and will adjust once stable for 4 hours to Q2H -consistent carb diet -SSI -hold lantus, will restart once normoglycemia persists -hold trulicity -hold janumet Sepsis: criteria hypothermia, leukocytosis, with now confirmed UTI per UA -Blood cultures -urine culture --> UA was positive --> will start empiric ceftriaxone -CXR -CBC and CMP as above -Q2H vitals -Continue fluids D5NS @ 150cc/hr, has been and continues to be hemodynamically stable. Hypothermia: resolved after a few hours of Bairhugger. Currently normothermic -UA+, started antibiotics as noted above -follow up blood cultures and CXR -CBC and CMP as above -tox screen -Q2H vitals TATIANA: likely prerenal in the setting of dehydration vs. rhabdo as she was with a 3y old for an unknown amount of time down until she was found by the 13yo grandchild. -CK -fluids as above at 150cc/hr -CMP as above -urine Na, Cr -Will hold on renal US until next BMP check if worsening will order -strict I/Os -consider nephrology consult if Cr worsens -tox screen as above -renally dose medications Graves: -continue home methimazole Hypertension: -Hold home lisinopril and treat with hydralazine PRN if hypertensive Chronic back pain: -continue home jak (renally dosed), oxy/APAP, duloxetine and tizanidine PRN Diabetes: -holding home glargine, janumet and trulicity in the setting of persistent symptomatic hypoglycemia -D5NS as above -Q1H FSBG for 4H, then space out if stable -SSI -Hypoglycemia protocol -consistent carb diet Neuropathy: -continue home gabapentin Hyperlipidemia: -continue Lipitor 40 -Continue Vit D and ASA 81 home meds DVT prophylaxis: heparin 5000u Q8H Diet: consistent carb - Plan / VTE VTE Prophylaxis Ordered?: Yes LAVELL BARKSDALE MD Sep 01, 2019 21:41
[2019-09-02] MEDS: oxyCODONE 5MG TAB PO PRN (03:10)
[2019-09-02] MEDS: D5W/0.9% SODIUM CHLORIDE 1,000 ML IV SCH (05:04)
[2019-09-02] MEDS: HEPARIN SOD (PORCINE) 5000 UNITS/ML VIAL SQ SCH ×3 (05:04→22:41)
[2019-09-02 05:13] LABS: HEMATOCRIT 36.5 % (36.0-47.0); HEMOGLOBIN 11.4 g/dl (12.0-15.5); MEAN CORPUSCULAR HEMOGLOBIN 31.1 pg (27.0-33.0); MEAN CORPUSCULAR HGB CONC 31.2 g/dl (32.0-36.5); MEAN CORPUSCULAR VOLUME 99.7 fl (80.0-96.0); PLATELET COUNT, AUTOMATED 170 10^3/uL (150-450); RED BLOOD COUNT 3.66 10^6/uL (4.00-5.40); WHITE BLOOD COUNT 13.1 10^3/uL (4.0-10.0)
[2019-09-02 05:40] LABS: CALCIUM LEVEL 6.9 MG/DL (8.8-10.2); CREATININE FOR GFR 3.68 MG/DL (0.55-1.30); GLOMERULAR FILTRATION RATE 15.9 (>45); MAGNESIUM LEVEL 1.3 MG/DL (1.8-2.4); POTASSIUM SERUM 4.5 MEQ/L (3.5-5.1)
[2019-09-02] MEDS ORDERED: FLUBLOK(EGG FREE)(QUAD)INFLUENZA VACC 0.5ML SYRINGE (90682)18YRS&OLDER IM SCH (06:00)
[2019-09-02] MEDS ORDERED: PREVNAR 13 VACCINE SYRINGE (CPT CODE:90670) IM SCH (06:00)
[2019-09-02] MEDS ORDERED: MAG SULF 1GM/100ML (MAG RUN) 1 GM in IV 1 EA IV ONE ×2 (06:00→12:00)
[2019-09-02] MEDS ORDERED: ENOXAPARIN 40 MG/0.4 ML SYRINGE (J1650) SC SCH (09:00)
[2019-09-02] MEDS ORDERED: LISINOPRIL 5 MG TAB PO SCH (09:00)
[2019-09-02] MEDS: VITAMIN D 1,000 INTERNATIONAL UNITS TABLET PO SCH (09:10)
[2019-09-02] MEDS: LORATADINE 10 MG TAB PO SCH (09:10)
[2019-09-02] MEDS: ASPIRIN 81 MG ENTERIC TAB PO SCH (09:10)
[2019-09-02] MEDS: DULoxetine 30 MG CAP (CYMBALTA) PO SCH (09:10)
[2019-09-02] MEDS: ATORVASTATIN 10 MG TAB PO SCH (09:10)
--- NOTE | 2019-09-02 10:03 | REP ---
CHEST, SINGLE VIEW: Single view of the chest was performed and compared to a prior study of 09/12/2015. The heart is upper limits of normal in size. There is linear fibroatelectatic change in each lung base without definite acute infiltrate. There is calcification and ectasia of the thoracic aorta. IMPRESSION: Moderate bibasilar fibroatelectatic change. Electronically Signed by Francesco Will MD 09/03/2019 11:41 A
[2019-09-02] MEDS ORDERED: NON-FORMULARY 1 EA EA PO PRN (12:45)
--- NOTE | 2019-09-02 12:59 | IPNPDOC ---
Subjective Date Seen The patient was seen on 09/02/19. Subjective Chief Complaint/HPI Patient somnolent but easily arousable. Though she is intermittently confused and could not remember why she is in the hospital , how she came here and what day was today. Denies any pain , denies any dysuria or frequency of urination. Objective Physical Examination General Exam: Positive: Alert, Mild Distress (leaning towards her right, reporting severe left lower back pain that is chronic and has not taken her medications in hours) Eye Exam: Positive: PERRLA, Conjunctiva & lids normal, EOMI, Other Eye Symptoms (bilateral exophthalmos); Negative: Sclera icteric, Ptosis ENT Exam: Positive: Atraumatic, Mucous membr. moist/pink, Pharynx Normal, T ongue Midline, Nares Patent Neck Exam: Positive: Supple; Negative: JVD, Lymphadenopathy Chest Exam: Positive: Clear to auscultation, Normal air movement; Negative: Rales, Rhonchi, Wheezing Heart Exam: Positive: Rate Normal, Regular Rhythm, Normal S1, Normal S2; Negative: Murmurs, Rubs Telemetry: Positive: No significant arrhythmia, Sinus Abdomen Exam: Positive: Normal bowel sounds, Soft, Other (obese, otherwise soft, non tender with normoactive bowel sounds); Negative: Tenderness, Hepatospenomegaly Extremity Exam: Positive: Edema (bilateral trace ankle edema), Normal pulses, Other (some small superficial skin peeling of right toes, otherwise no onychom ycosis or significant lesions); Negative: Clubbing, Cyanosis Skin Exam: Positive: Other skin issue (some skin peeling of R sided toes with no lesions) Neuro Exam: Positive: Normal Speech, Strength at 5/5 X4 ext, Normal Tone, Sensation Intact, Cranial Nerves 3-12 NL Psych Exam: Positive: Mental status NL, Mood NL, Oriented x 3 Assessment /Plan Assessment 64 yo woman with a history of Graves on methimazole, hypertension, HLD, renal cell carcinoma s/p remote partial right nephrectomy with last known renal function to be within normal limits and diabetes on insulin and recently started on trulicity 08/31 who was brought in to [place] after being found unresponsive while babysitting her grandchild and noted to have severe hypoglycemia and hypothermia and TATIANA on labs at [place] was transferred to [facility] for management of persistent hypoglycemia and hypothermia c/f sepsis Hypoglycemia with probably due to TATIANA and sepsis on the back ground of metformin, ACEI regular diet , Hold all home meds. FS OK, good oral intake will stop IVF continue to monitor FS Acute toxic metabolic encephalopathy. due to hypoglycemia, infection, gabapentin which may be too high for her current renal function. Hypothermia probably due to hypoglycemia Questionable Sepsis due to UTI. However urine has only 11 wbcs, no symptoms. Will continue antibiotics till cultures are available. continue ceftriaxone urine culture and blood culture in progress. Hypomagnesemia replaced. TATIANA was having diarrhea at home possibly prerenal received IVF and creatinine down from 4.2 to 3.6 monitor I/O , stop IVf. Graves: continue home methimazole Hypertension: Hold home lisinopril due to TATIANA BP well controlled at present Chronic back pain: continue home jak (renally dosed), oxy/APAP, duloxetine and tizanidine PRN Diabetes with neuropathy presented with hypoglycemia hold all home antidiabetic meds. Neuropathy: continue home gabapentin Hyperlipidemia: continue Lipitor 40 Continue Vit D and ASA 81 home meds DVT prophylaxis: heparin 5000u Q8H Plan/VTE VTE Prophylaxis Ordered?: Yes VS, I&O, 24H, Fishbone Vital Signs/I&O Vital Signs Date Time Temp Pulse Resp B/P (MAP) Pulse Ox O2 Delivery O2 Flow Rate FiO2 09/02/19 09:10 135/59 09/02/19 08:23 20 09/02/19 08:00 99.4 92 96 Room Air I&O- Last 24 Hours up to 6 AM 09/02/19 06:00 Intake Total 1350 ml Output Total 200 ml Balance 1150 ml Laboratory Data 24H LABS Laboratory Tests 2 09/01/19 22:18: Bedside Glucose (Misc Panel) 100 09/01/19 22:30: Urine Color YELLOW, Urine Appearance CLOUDYH, Urine pH 5.0, Urine Specific [place] 1.010, Urine Protein NEGATIVE, Urine Glucose (UA) NEGATIVE, Urine Ket ones NEGATIVE, Urine Blood NEGATIVE, Urine Nitrite NEGATIVE, Urine Bilirubin NEGATIVE, Urine Urobilinogen 0.2, Urine Leukocyte Esterase 2+H, Urine WBC (Auto) 11H, Urine RBC (Auto) 1, Urine Hyaline Casts (Auto) 0, Urine Bacteria (Auto) 3+H, Urine Squamous Epithelial Cells 10, Urine Sperm (Auto) , Urine Opiates Screen POSITIVEH, Urine Methadone Screen NEGATIVE, Urine Barbiturates Screen NEGATIVE, Urine Phencyclidine Screen NEGATIVE, Urine Amphetamines Screen NEGATIVE, Urine Benzodiazepines Screen NEGATIVE, Urine Cocaine Metabolite Screen NEGATIVE, Urine Cannabinoids Screen NEGATIVE 09/01/19 22:41: Nucleated Red Blood Cells % (auto) 0.0, Anion Gap 17H, Glomerular Filtration Rate 14.7L, Lactic Acid Level 2.6*H, Calcium Level 7.1L, Total Bilirubin 0.5, Aspartate Amino Transf (AST/SGOT) 24, Alanine Aminotransferase (ALT/SGPT) 35, Alkaline Phosphatase 112, Total Creatine Kinase 142, Total Protein 7.5, Albumin 3.5, Albumin/Globulin Ratio 0.88L 09/01/19 22:56: Bedside Glucose (Misc Panel) 91 09/01/19 23:55: Bedside Glucose (Misc Panel) 73L 09/02/19 00:54: Bedside Glucose (Misc Panel) 110 09/02/19 01:51: Bedside Glucose (Misc Panel) 143H 09/02/19 02:52: Bedside Glucose (Misc Panel) 138H 09/02/19 03:56: Bedside Glucose (Misc Panel) 151H 09/02/19 05:01: Bedside Glucose (Misc Panel) 123H, Nucleated Red Blood Cells % (auto) 0.0, Anion Gap 10, Glomerular Filtration Rate 15.9L, Lactic Acid Followup at 4 Hours 2.5*H, Calcium Level 6.9L, Magnesium Level 1.3L 09/02/19 05:53: Bedside Glucose (Misc Panel) 150H 09/02/19 07:57: Bedside Glucose (Misc Panel) 149H 09/02/19 12:01: Bedside Glucose (Misc Panel) 228H CBC/BMP Laboratory Tests 09/01/19 22:41 09/02/19 05:01 Microbiology Microbiology 09/01/19 Blood Culture, Received Pending 09/01/19 Urine Culture, Received Pending DIANA MESA MD Sep 02, 2019 12:59
[2019-09-02] MEDS ORDERED: PILL CUTTER 1 EACH XX PRN (13:00)
[2019-09-02] MEDS: NS 1,000 ML IV SCH (13:36)
--- NOTE | 2019-09-02 21:46 | CR ---
DATE OF CONSULTATION: 09/02/2019 REQUESTING PHYSICIAN: Dr. Charleen Beltrán REASON FOR CONSULTATION: Acute kidney injury (TATIANA) on chronic kidney disease (CKD) stage III. HISTORY OF PRESENT ILLNESS: Chloe Chery is a 64-year-old female with a past medical history of hypertension, renal cell carcinoma status post right partial nephrectomy, history of drug abuse, hypertension, Grave's disease, dyslipidemia, diabetic neuropathy and other comorbid conditions mentioned below. The patient was transferred from [place] to [facility] after an episode of hypoglycemia at home. Apparently the patient had been having several day history of watery diarrhea. She reports that over the weekend she was started on Trulicity and also on Janumet by her primary care. She was babysitting her grandchildren when another grandchild came home and found the patient unresponsive. Subsequently emergency medical services (EMS) was called, and the patient was found to have a blood glucose in the 20s. She received several D10 boluses in [place] [facility], but the patient continued to have repeat hypoglycemic episodes and thus was transferred to [facility]. Her laboratory studies showed acute kidney injury with a peak creatinine of 4.2 and mild lactic acidosis. Exact down time is unknown, but her creatine kinase level is not elevated. The patient is seen and examined this morning at the bedside in the intensive care unit sitting out of bed to the chair, eating breakfast. Nursing staff reports that the patient has been intermittently confused, especially after receiving pain medications. The patient tells me that her first dose of Trulicity and Janumet were both over the weekend. She also reports occasional nonsteroidal anti-inflammatory drug (NSAID) use, though no heavy use recently. PAST MEDICAL HISTORY: Hypertension. Grave's disease. Diabetes. Diabetic neuropathy. Renal cell carcinoma, status post right partial nephrectomy. Chronic back pain. Degenerative joint disease. Dyslipidemia. Obesity. PAST SURGICAL HISTORY: Partial nephrectomy on the right. FAMILY HISTORY: Mother from complications of dementia, a sister with coronary artery disease. No family history of end-stage renal disease. ALLERGIES: No known drug allergies. SOCIAL HISTORY: She is a current smoker. She denies alcohol or present illicit drugs, but electronic medical record does state that there is a history of cocaine use. HOME MEDICATIONS: - aspirin 81 mg by mouth daily - atorvastatin 10 mg by mouth daily - vitamin D3 1000 units by mouth daily - Trulicity 0.75 mg subcu one time per week - duloxetine 60 mg by mouth daily - gabapentin 400 mg by mouth three times a day - insulin - lisinopril 5 mg by mouth daily - metformin 1000 mg by mouth daily - methimazole 10 mg by mouth daily - Janumet two tablets in the evening - Percocet as needed - tizanidine as needed REVIEW OF SYSTEMS: Constitutional: She denies fevers, chills or weight loss. Eyes: She denies vision changes or blurring vision. She has changes in the eyes related to Grave's disease and hyperthyroid state. ENT: She denies ear pain or dysphagia. Skin: She denies any new rashes or lesions. Pulmonary: She denies dyspnea or cough. Cardiac: She denies chest pain or palpitations. Gastrointestinal: She reports diarrhea. She denies nausea or vomiting. Genitourinary: She denies urinary tract infection (UTI) symptoms or dysuria or frequency. Hematologic: She denies anticoagulant use, easy bleeding or bruising. Endocrine: She reports a history of insulin dependent diabetes and also Grave's disease. Musculoskeletal: She reports back pain, which is chronic. Neurologic: She reports neuropathy. She denies a history of seizures. Psychiatric: She denies anxiety or depression. PHYSICAL EXAMINATION: Vital signs: Temperature 97.8, pulse 92, respiratory rate 18, blood pressure 124/69, saturating 99% on room air. Urine output thus far today is 750 mL plus four incontinent voids. General: The patient is seen sitting out of bed to the chair in the intensive care unit, elderly female, feeding herself lunch, in no acute respiratory distress. There is bilateral exophthalmos. The sclerae are anicteric. The neck is supple. There is no jugular venous distension. Cardiac: S1, S2, regular rate and rhythm. Lungs: Clear to auscultation bilaterally. No crackles, rales, or rhonchus. Abdomen is soft, obese and nontender. Positive bowel sounds. Lower extremities show trace ankle edema. Otherwise no other edema, clubbing or cyanosis. Skin: Normal temperature and turgor. Neurologic: The patient is oriented to person, place, situation. Answers simple questions appropriately, is cooperative. No focal deficit. LABORATORY: Sodium 138, potassium 4.5, bicarbonate 16, BUN 42, creatinine 3.6, glucose 130, lactic acid 2.5, magnesium 1.3, hemoglobin 11.4, platelet 170. Microbiology: Blood and urine cultures are pending. IMAGING: Chest x-ray 09/01/2019: Moderate bibasilar fibroatelectatic change. INPATIENT MEDICATIONS: The patient's lisinopril has been discontinued. - I cut her gabapentin down to 200 mg by mouth daily. Other medications include Rocephin 2 grams IV every 12 hours, 2 grams of IV magnesium sulfate, normal saline at 75 mL an hour, aspirin 81 mg by mouth daily, atorvastatin 10 mg by mouth daily, duloxetine 60 mg by mouth daily, heparin 5000 units subcu every 8 hours, methimazole 10 mg by mouth daily, oxycodone as needed, tizanidine 1 mg by mouth three times a day as needed, vitamin D 1000 units by mouth daily. PROBLEMS: 1. Nonoliguric acute kidney injury. Most likely hemodynamically mediated tubular injury in the setting of syncope and hypoglycemic episode with uncertain down time and complicated by use of angiotensin converting enzyme inhibitor (lisinopril) and also complicated by metformin use, along with diarrhea. Her peak creatinine was 4.2 and is presently down trended to 3.6. She is presently on IV fluids and has adequate urine output. Nephrotoxics have been held. Her lisinopril was appropriately discontinued. We will continue to monitor her trend in renal function. There is no need for hemodialysis at present. Her urinalysis was negative for blood and protein, and I am optimistic that her renal function should continue to improve with supportive care. 2. High anion gap metabolic acidosis. The patient initially presented with an anion gap of 17, and this has decreased down to an anion gap of 10, and it is probably related to renal failure and lactic acidosis. Metformin has already been stopped. If there is no improvement in her serum bicarbonate by tomorrow morning, we will add bicarbonate to her IV fluids. At present, I will hold off given the hypocalcemia, which can worsen with bicarbonate containing fluids. 3. Hyperkalemia related to acute kidney injury and angiotensin-converting enzyme (MALIK) inhibitor use. It has resolved. 4. Hypomagnesemia. She has received magnesium supplementation and repeat magnesium level was requested. 5. Hypocalcemia. Corrected calcium of 7.3. I have ordered her for calcium supplementation. Her CK level was not elevated to suggest rhabdomyolysis (rhabdo). 6. Encephalopathy. Nursing staff reports that the patient is intermittently confused. Given her acute kidney injury, I have decreased her gabapentin to once daily. 7. Hypertension. Please hold angiotensin-converting enzyme (MALIK), angiotensin receptor eboni at present. Patient's systolic is 110s to 130s, and I do not feel that she requires any antihypertensives at this time. Continue with IV fluids. 8. Questionable urinary tract infection (UTI). Urinalysis with positive leucocyte esterase and WBCs but negative nitrites. Culture is pending and primary team has already started the patient on ceftriaxone. Thank you for involving me in the care of Ms. Chery. I will be happy to follow her along with you.
[2019-09-03] MEDS: NS 1,000 ML IV SCH (03:52)
[2019-09-03] MEDS: HEPARIN SOD (PORCINE) 5000 UNITS/ML VIAL SQ SCH ×3 (05:34→21:12)
[2019-09-03 06:00] VITALS: BP 135/65
[2019-09-03 06:18] LABS: BASO % 0.2 % (0.0-1.0); EOS # 0.3 10^3/uL (0.0-0.5); EOS % 2.7 % (0.0-3.0); HEMATOCRIT 34.3 % (36.0-47.0); HEMOGLOBIN 10.9 g/dl (12.0-15.5); LYMPH # 1.7 10^3/uL (1.5-5.0); LYMPH % 18.3 % (24.0-44.0); MEAN CORPUSCULAR HEMOGLOBIN 31.2 pg (27.0-33.0); MEAN CORPUSCULAR HGB CONC 31.8 g/dl (32.0-36.5); MEAN CORPUSCULAR VOLUME 98.3 fl (80.0-96.0); MONO # 1.2 10^3/uL (0.0-0.8); MONO % 12.9 % (0.0-5.0); NEUTROPHILS # 6.2 10^3/uL (1.5-8.5); NEUTROPHILS % 65.6 % (36.0-66.0); PLATELET COUNT, AUTOMATED 164 10^3/uL (150-450); RED BLOOD COUNT 3.49 10^6/uL (4.00-5.40); WHITE BLOOD COUNT 9.5 10^3/uL (4.0-10.0)
[2019-09-03 06:41] LABS: CALCIUM LEVEL 7.9 MG/DL (8.8-10.2); CREATININE FOR GFR 3.23 MG/DL (0.55-1.30); GLOMERULAR FILTRATION RATE 18.5 (>45)
[2019-09-03] MEDS: GABAPENTIN 100 MG CAP PO SCH (08:53)
[2019-09-03] MEDS: VITAMIN D 1,000 INTERNATIONAL UNITS TABLET PO SCH (08:53)
[2019-09-03] MEDS: ASPIRIN 81 MG ENTERIC TAB PO SCH (08:53)
[2019-09-03] MEDS: DULoxetine 30 MG CAP (CYMBALTA) PO SCH (08:54)
[2019-09-03] MEDS: ATORVASTATIN 10 MG TAB PO SCH (08:54)
[2019-09-03] MEDS: LORATADINE 10 MG TAB PO SCH (08:54)
--- NOTE | 2019-09-03 13:00 | IPN ---
DATE: 09/03/2019 ALANA Corona is seen and examined this morning at the bedside. Nursing staff reports there have not been any recurrent episodes of confusion. Patient has no complaints today. Denies shortness of breath. Has been having incontinent voids. Remained on IV fluids overnight and denies recurrent diarrhea. VITAL SIGNS: Temperature 97.4, pulse 95, respiratory rate 17, blood pressure 135/65, saturating 94-96% on room air. Intake yesterday was 4.2 liters, output could not be recorded as she was incontinent of six urinary voids and also had five recorded bowel movements. GENERAL: The patient is seen sitting out of bed to the chair, drowsy but easily arousable, awake and alert, oriented to person, place and situation. Cooperative with physical exam. Extraocular muscles are intact. There is bilateral exophthalmos. Sclera are anicteric. Neck is supple. There is no jugular venous distension. Heart sounds are regular S1-S2. There is trace ankle edema bilaterally. The lungs show symmetric air entry without crackles or rales. There is diminished breath sounds at the bases. Extremities show bilateral ankle edema. No clubbing or cyanosis. LABORATORY DATA: Sodium 141, potassium 5.0, bicarbonate 19, BUN 42, creatinine 3.2, anion gap of 8, hemoglobin 10.9. Chest x-ray September 01 shows moderate bibasilar fibroatelectatic change. INPATIENT MEDICATIONS: Ceftriaxone 2 grams IV daily. She is off IV fluids. Remainder medications are unchanged from prior. PROBLEMS: 1. Nonoliguric acute kidney injury. Most likely multifactorial and related to hemodynamically mediated tubular injury in the setting of syncope/hypoglycemic episodes with uncertain down time, plus use of MALIK inhibitor, plus use of metformin, plus diarrhea. Peak creatinine 4.2 presently down to 3.2. Urine output has not been recorded because of incontinent voids, but the patient is nonoliguric. She is off of MALIK inhibitor. Her electrolytes and volume status are stable. Her acidosis is improved. Urinalysis is negative for blood and protein. Kidney ultrasound is pending. We will continue at this time with supportive care and repeat daily renal panel. 2. High anion gap metabolic acidosis. The patient initially had a anion gap of 17, this is now down to 10, probably related to combination renal failure, lactic acidosis, metformin use. Serum bicarbonate is up to 19. Will hold off on bicarbonate containing fluids at present. 3. Hyperkalemia related to acute kidney injury and MALIK inhibitor use. Potassium of 5.0 today. Continue with potassium restriction in the diet. As her acidosis has improved her hyperkalemia has improved as well. 4. Encephalopathy. Nursing staff does not report any recurrent episodes of confusion overnight nor this morning. Would continue with the lower dose of gabapentin at present in view of her current GFR.
[2019-09-03 14:00] VITALS: BP 142/60
[2019-09-03] MEDS ORDERED: DEXTROSE 50% 50 ML SYRINGE IV PRN (14:45)
[2019-09-03] MEDS ORDERED: GLUCOSE 4 GM CHEW TABLET PO PRN (14:45)
[2019-09-03] MEDS ORDERED: GLUCAGON FOR INJ 1 MG VIAL (J1610) SC PRN (14:45)
--- NOTE | 2019-09-03 14:49 | IPNPDOC ---
Subjective Date Seen The patient was seen on 09/03/19. Subjective Chief Complaint/HPI Says feels a little better today. says having a lot of urine output and incontinence which she has at home too. Says her knees are very weak and often give way she was fallen several times in the last month. She uses a cane but still falls, No fever or chills, no abdominal pain, nausea or vomiting or diarrhea. No dysuria. As per nurses was intermittently confused yesterday but better this morning. Objective Physical Examination General Exam: Positive: Alert, Mild Distress (leaning towards her right, reporting severe left lower back pain that is chronic and has not taken her medications in hours) Eye Exam: Positive: PERRLA, Conjunctiva & lids normal (has bilateral pr optosis), EOMI, Other Eye Symptoms (bilateral exophthalmos); Negative: Sclera icteric, Ptosis ENT Exam: Positive: Atraumatic, Mucous membr. moist/pink, Pharynx Normal, Tongue Midline, Nares Patent Neck Exam: Positive: Supple; Negative: JVD, Lymphadenopathy Chest Exam: Positive: Clear to auscultation, Normal air movement; Negative: Rales, Rhonchi, Wheezing Heart Exam: Positive: Rate Normal, Regular Rhythm, Normal S1, Normal S2; Negative: Murmurs, Rubs Telemetry: Positive: No significant arrhythmia, Sinus Abdomen Exam: Positive: Normal bowel sounds, Soft, Other (obese, otherwise soft, non tender with normoactive bowel sounds); Negative: Tenderness, Hepatospenomegaly Extremity Exam: Positive: Edema (bipedal 1+edema), Normal pulses, Other (some small superficial skin peeling of right toes, otherwise no onychomycosis or significant lesions); Negative: Clubbing, Cyanosis Skin Exam: Positive: Other skin issue (some skin peeling of R sided toes with no lesions) Neuro Exam: Positive: Normal Speech, Strength at 5/5 X4 ext, Normal Tone, Sensation Intact, Cranial Nerves 3-12 NL Psych Exam: Positive: Mental status NL, Mood NL, Oriented x 3 Assessment /Plan Assessment 64 yo woman with a history of Graves on methimazole, hypertension, HLD, renal cell carcinoma s/p remote partial right nephrectomy with last known renal function to be within normal limits and diabetes on insulin and recently started on trulicity 08/31 who was brought in to [place] after being found unresponsive while babysitting her infant grandchild and noted to have severe hypoglycemia and hypothermia and TATIANA on labs at [place] was transferred to [facility] for management of persistent hypoglycemia and hypothermia c/f sepsis Hypoglycemia: probably due to TATIANA and sepsis on the back ground of metformin. regular diet , Hold all home meds. FS OK, good oral intake will stop IVF continue to monitor FS Metabolic encephalopathy improving probably due to hypoglycemia and gabapentin which may have been too high dosage for her TATIANA causing confusion dosage was reduced. Hypothermia probably due to hypoglycemia Questionable Sepsis due to UTI. However urine has only 11 wbcs, no symptoms. Will continue antibiotics till cultures are available. continue ceftriaxone urine culture and blood culture in progress. Hypomagnesemia replaced. TATIANA was having diarrhea at home possibly prerenal received IVF and creatinine down from 4.2 to 3.2 monitor I/O , stop IVf. Graves: continue home methimazole Hypertension: Hold home lisinopril due to TATIANA BP well controlled at present Chronic back pain: continue home jak (renally dosed), oxy/APAP, duloxetine and tizanidine PRN Diabetes with neuropathy presented with hypoglycemia hold all home antidiabetic meds. Neuropathy: continue home gabapentin Hyperlipidemia: continue Lipitor 40 Continue Vit D and ASA 81 home meds DVT prophylaxis: heparin 5000u Q8H Plan/VTE VTE Prophylaxis Ordered?: Yes VS, I&O, 24H, Fishbone Vital Signs/I&O Vital Signs Date Time Temp Pulse Resp B/P (MAP) Pulse Ox O2 Delivery O2 Flow Rate FiO2 09/03/19 08:00 20 09/03/19 06:00 97.4 95 135/65 (88) 94 Room Air I&O- Last 24 Hours up to 6 AM 09/03/19 06:00 Intake Total 3717 ml Output Total 750 ml Balance 2967 ml Laboratory Data 24H LABS Laboratory Tests 2 09/02/19 16:24: Bedside Glucose (Misc Panel) 172H 09/02/19 20:27: Bedside Glucose (Misc Panel) 181H 09/03/19 01:29: Bedside Glucose (Misc Panel) 175H 09/03/19 04:06: Bedside Glucose (Misc Panel) 172H 09/03/19 05:25: Immature Granulocyte % (Auto) 0.3, Neutrophils (%) (Auto) 65.6, Lymphocytes (%) (Auto) 18.3L, Monocytes (%) (Auto) 12.9H, Eosinophils (%) (Auto) 2.7, Basophils (%) (Auto) 0.2, Neutrophils # (Auto) 6.2, Lymphocytes # (Auto) 1.7, Monocytes # (Auto) 1.2H, Eosinophils # (Auto) 0.3, Basophils # (Auto) 0.0, Nucleated Red Blood Cells % (auto) 0.0, Anion Gap 8, Glomerular Filtration Rate 18.5L, Calcium Level 7.9L 09/03/19 09:01: Bedside Glucose (Misc Panel) 136H 09/03/19 11:37: Bedside Glucose (Misc Panel) 254H CBC/BMP Laboratory Tests 09/03/19 05:25 Microbiology Microbiology 09/01/19 Blood Culture - Preliminary, Resulted No growth after 24 hours . All specim... 09/01/19 Urine Culture - Final, Complete DIANA MESA MD Sep 03, 2019 14:49
--- NOTE | 2019-09-03 17:43 | REP ---
RENAL ULTRASOUND: Real-time sonographic evaluation of the kidneys performed. The study is limited due to patient body habitus. The kidneys appear normal in size and echotexture, right kidney measuring 12.5 x 5.8 x 4.4 cm and left kidney 14.0 x 4.8 x 4.8 cm. There is no hydronephrosis bilaterally. 1 cm echogenic focus in the cortex of the inferolateral right kidney may represent a focal cortical calcification. Ureteral jets are not seen in the urinary bladder with Doppler color evaluation. IMPRESSION: No hydronephrosis bilaterally. Electronically Signed by Francesco Will MD 09/06/2019 10:14 A
[2019-09-03] MEDS: HumaLOG INSULIN (NovoLOG) PER UNIT SC SCH (17:51)
[2019-09-03] MEDS: PERCOCET 5MG/325MG TAB PO PRN (17:51)
[2019-09-03] MEDS ORDERED: LEVEMIR (INSULIN DETEMIR) 1 UNITS/0.01ML SC SCH (21:00)
[2019-09-03 22:00] VITALS: BP 132/58
[2019-09-04] MEDS ORDERED: cefTRIAXone SOD 2 GM in D5W MINI-BAG PLUS 50 ML IV SCH ×2
[2019-09-04 06:00] VITALS: BP 134/76
[2019-09-04] MEDS: HEPARIN SOD (PORCINE) 5000 UNITS/ML VIAL SQ SCH ×3 (06:02→21:00)
[2019-09-04 06:33] LABS: BASO % 0.2 % (0.0-1.0); EOS # 0.3 10^3/uL (0.0-0.5); EOS % 3.7 % (0.0-3.0); HEMATOCRIT 33.1 % (36.0-47.0); HEMOGLOBIN 10.5 g/dl (12.0-15.5); LYMPH # 2.1 10^3/uL (1.5-5.0); LYMPH % 25.2 % (24.0-44.0); MEAN CORPUSCULAR HEMOGLOBIN 31.3 pg (27.0-33.0); MEAN CORPUSCULAR HGB CONC 31.7 g/dl (32.0-36.5); MEAN CORPUSCULAR VOLUME 98.5 fl (80.0-96.0); MONO % 11.9 % (0.0-5.0); NEUTROPHILS # 4.8 10^3/uL (1.5-8.5); NEUTROPHILS % 58.8 % (36.0-66.0); PLATELET COUNT, AUTOMATED 182 10^3/uL (150-450); RED BLOOD COUNT 3.36 10^6/uL (4.00-5.40); WHITE BLOOD COUNT 8.1 10^3/uL (4.0-10.0)
[2019-09-04 07:04] LABS: CALCIUM LEVEL 8.1 MG/DL (8.8-10.2); CREATININE FOR GFR 2.51 MG/DL (0.55-1.30); GLOMERULAR FILTRATION RATE 24.7 (>45); POTASSIUM SERUM 4.7 MEQ/L (3.5-5.1)
--- NOTE | 2019-09-04 09:32 | IPNPDOC ---
Subjective Date Seen The patient was seen on 09/04/19. Subjective Chief Complaint/HPI Feeling better, good appetite, good urine output. no fever or chills, no dysuria, no abdominal pain , does have frequency of urination and urinary incontinence which is chronic. No confusion in the last 24 hours. Objective Physical Examination General Exam: Positive: Alert, Mild Distress (leaning towards her right, reporting severe left lower back pain that is chronic and has not taken her medications in hours) Eye Exam: Positive: PERRLA, Conjunctiva & lids normal (has bilateral proptosis), EOMI, Other Eye Symptoms (bilateral exophthalmos); Negative: Sclera icteric, Ptosis ENT Exam: Positive: Atraumatic, Mucous membr. moist/pink, Pharynx Normal, Tongue Midline, Nares Patent Neck Exam: Positive: Supple; Negative: JVD, Lymphadenopathy Chest Exam: Positive: Clear to auscultation, Normal air movement; Negative: Rales, Rhonchi, Wheezing Heart Exam: Positive: Rate Normal, Regular Rhythm, Normal S1, Normal S2; Negative: Murmurs, Rubs Telemetry: Positive: No significant arrhythmia, Sinus Abdomen Exam: Positive: Normal bowel sounds, Soft, Other (obese, otherwise soft, non tender with normoactive bowel sounds); Negative: Tenderness, Hepatospenomegaly Extremity Exam: Positive: Edema (left > right), Normal pulses, Other (some small superficial skin peeling of right toes, otherwise no onychomycosis or si gnificant lesions); Negative: Clubbing, Cyanosis Skin Exam: Positive: Other skin issue (some skin peeling of R sided toes with no lesions) Neuro Exam: Positive: Normal Speech, Strength at 5/5 X4 ext, Normal Tone, Sensation Intact, Cranial Nerves 3-12 NL Psych Exam: Positive: Mental status NL, Mood NL, Oriented x 3 Assessment /Plan Assessment 64 yo woman with a history of Graves on methimazole, hypertension, HLD, renal cell carcinoma s/p remote partial right nephrectomy with last known renal function to be within normal limits and diabetes on insulin and recently started on trulicity 08/31 who was brought in to [facility] after being found unresponsive while babysitting her grandchild and noted to have severe hypoglycemia and hypothermia and TATIANA on labs at [facility] was transferred to [facility] for management of persistent hypoglycemia and hypothermia c/f sepsis Hypoglycemia: resolved probably due to TATIANA from prerenal cause and being on high dose of insulin , metformin which caused hypoglycemia due to decreased renal function. will restart insulin. carb consistent diet. continue to monitor FS Metabolic encephalopathy resolved probably due to hypoglycemia and gabapentin which may have been too high dosage for her TATIANA causing confusion dosage was reduced. no confusion now. Hypothermia probably due to hypoglycemia No Sepsis No UTI, urine culture was contaminated. No symptoms, UA only 11 wbcs. stopped antibiotics. Hypomagnesemia replaced. TATIANA was having diarrhea at home possibly prerenal on the back ground of metformin and lisinopril received IVF and creatinine down from 4.2 to2.5 monitor I/O Graves: continue home methimazole Hypertension: Hold home lisinopril due to TATIANA BP well controlled at present Chronic back pain: continue home gabapentin (renally dosed), oxy/APAP, duloxetine and tizanidine PRN Diabetes with neuropathy presented with hypoglycemia hold all home antidiabetic meds. Neuropathy: continue home gabapentin Hyperlipidemia: continue Lipitor 40 Continue Vit D and ASA 81 home meds DVT prophylaxis: heparin 5000u Q8H Plan/VTE VTE Prophylaxis Ordered?: Yes VS, I&O, 24H, Fishbone Vital Signs/I&O Vital Signs Date Time Temp Pulse Resp B/P (MAP) Pulse Ox O2 Delivery O2 Flow Rate FiO2 09/04/19 06:00 97.1 82 16 134/76 (95) 94 Room Air I&O- Last 24 Hours up to 6 AM 09/04/19 06:00 Intake Total 2070 ml Output Total 200 ml Balance 1870 ml Laboratory Data 24H LABS Laboratory Tests 2 09/03/19 11:37: Bedside Glucose (Misc Panel) 254H 09/03/19 16:07: Bedside Glucose (Misc Panel) 155H 09/03/19 20:28: Bedside Glucose (Misc Panel) 224H 09/04/19 05:52: Immature Granulocyte % (Auto) 0.2, Neutrophils (%) (Auto) 58.8, Lymphocytes (%) (Auto) 25.2, Monocytes (%) (Auto) 11.9H, Eosinophils (%) (Auto) 3.7H, Basophils (%) (Auto) 0.2, Neutrophils # (Auto) 4.8, Lymphocytes # (Auto) 2.1, Monocytes # (Auto) 1.0H, Eosinophils # (Auto) 0.3, Basophils # (Auto) 0.0, Nucleated Red Blood Cells % (auto) 0.0, Anion Gap 6L, Glomerular Filtration Rate 24.7L, Calcium Level 8.1L CBC/BMP Laboratory Tests 09/04/19 05:52 Microbiology Microbiology 09/01/19 Blood Culture - Preliminary, Resulted No Growth after 48 hours. All Specime... 09/01/19 Urine Culture - Final, Complete DIANA MESA MD Sep 04, 2019 09:24
[2019-09-04] MEDS: GABAPENTIN 100 MG CAP PO SCH (09:58)
[2019-09-04] MEDS: LORATADINE 10 MG TAB PO SCH (09:59)
[2019-09-04] MEDS: HumaLOG INSULIN (NovoLOG) PER UNIT SC SCH ×3 (09:59→17:32)
[2019-09-04] MEDS: VITAMIN D 1,000 INTERNATIONAL UNITS TABLET PO SCH (09:59)
[2019-09-04] MEDS: ASPIRIN 81 MG ENTERIC TAB PO SCH (09:59)
[2019-09-04] MEDS: DULoxetine 30 MG CAP (CYMBALTA) PO SCH (09:59)
[2019-09-04] MEDS: ATORVASTATIN 10 MG TAB PO SCH (09:59)
--- NOTE | 2019-09-04 12:50 | IPN ---
DATE: 09/04/2019 SUBJECTIVE: Chloe was seen and examined this morning at the bedside. She reports that she walked with physical therapy. Does complain of dyspnea with exertion, but states it is unchanged from prior. She has been voiding without any issues. Laboratories show improvement in renal function though not yet back to baseline. Has not had any recurrent episodes of confusion. Vital signs: Temperature 97.1, pulse 82, respiratory rate 16, blood pressure 134/76, saturating 94-100% on room air. Intake yesterday was 2200, output was not recorded as she had five incontinent voids. Weight in the bed scale today is not recorded. General: The patient is seen sitting out of bed to the chair eating breakfast. Awake, alert, oriented, comfortable. In no acute respiratory distress. Bilateral eyes with xanthomas. Sclerae are anicteric. Extraocular muscles are intact. Neck is supple. Jugular veins were not elevated while she was sitting upright. Heart sounds are regular S1-S2. There is 1+ edema in bilateral lower extremities, which is increased from prior, and the lungs show diminished breath sounds at the bases. Abdomen is soft and nontender. There are bowel sounds. There is no suprapubic fullness Skin with normal temperature and turgor. LABORATORY DATA: Sodium 143, potassium 4.7, bicarbonate 21, BUN 39, creatinine 2.5, hemoglobin 10.5. Urine culture came back as a contaminant. Renal ultrasound September 03 shows no hydronephrosis and somewhat large kidneys bilaterally. INPATIENT MEDICATIONS: She has been discontinued off of IV fluids. She has been discontinued off of ceftriaxone. Her insulin was adjusted by the primary team. Remainder of medications are unchanged from prior. PROBLEMS: 1. Acute kidney injury, nonoliguric, most likely multifactorial and related to probable hemodynamic mediated tubular injury in the setting of syncope / hypoglycemic episode plus MALIK inhibitor use plus metformin use plus reported diarrhea. Peak creatinine of 4.2, presently down to 2.5. Urine output has not been recorded because of incontinent voids. She remains off of MALIK inhibitors. She is becoming a little bit hypervolemic on exam and her IV fluids have been stopped. Her electrolytes and acid base status are acceptable. Kidney ultrasound was unremarkable. Urinalysis is negative for blood and protein. Renal function continues to improve with supportive care. Repeat daily renal panel. 2. High anion gap metabolic acidosis. The patient initially had a anion gap of 17. This is has now resolved. It was probably related to combination renal failure, lactic acid, metformin use. 3. Hypertension. Blood pressures are acceptable. Systolic 120s to 140s. The patient is presently on no antihypertensives. I would keep her off of MALIK and ARB until her renal function has fully recovered to baseline. 4. Insulin dependent diabetes mellitus. Primary team has already adjusted her insulin. She remains off of metformin.
[2019-09-04 14:00] VITALS: BP 126/68
[2019-09-04] MEDS: LEVEMIR (INSULIN DETEMIR) 1 UNITS/0.01ML SC SCH (21:00)
[2019-09-04] MEDS: oxyCODONE 5MG TAB PO PRN (21:01)
[2019-09-04 22:00] VITALS: BP 143/76
[2019-09-05] MEDS: HEPARIN SOD (PORCINE) 5000 UNITS/ML VIAL SQ SCH ×3 (05:07→21:06)
[2019-09-05 06:00] VITALS: BP 158/84
[2019-09-05 06:33] LABS: BASO % 0.4 % (0.0-1.0); EOS # 0.3 10^3/uL (0.0-0.5); EOS % 3.6 % (0.0-3.0); HEMATOCRIT 35.2 % (36.0-47.0); HEMOGLOBIN 11.1 g/dl (12.0-15.5); LYMPH # 2.6 10^3/uL (1.5-5.0); LYMPH % 31.4 % (24.0-44.0); MEAN CORPUSCULAR HEMOGLOBIN 30.9 pg (27.0-33.0); MEAN CORPUSCULAR HGB CONC 31.5 g/dl (32.0-36.5); MEAN CORPUSCULAR VOLUME 98.1 fl (80.0-96.0); MONO % 11.9 % (0.0-5.0); NEUTROPHILS # 4.3 10^3/uL (1.5-8.5); NEUTROPHILS % 52.5 % (36.0-66.0); PLATELET COUNT, AUTOMATED 205 10^3/uL (150-450); RED BLOOD COUNT 3.59 10^6/uL (4.00-5.40); WHITE BLOOD COUNT 8.3 10^3/uL (4.0-10.0)
[2019-09-05 06:56] LABS: CALCIUM LEVEL 8.6 MG/DL (8.8-10.2); CREATININE FOR GFR 2.05 MG/DL (0.55-1.30); GLOMERULAR FILTRATION RATE 31.2 (>45); POTASSIUM SERUM 4.4 MEQ/L (3.5-5.1)
[2019-09-05] MEDS: VITAMIN D 1,000 INTERNATIONAL UNITS TABLET PO SCH (08:55)
[2019-09-05] MEDS: GABAPENTIN 100 MG CAP PO SCH (08:55)
[2019-09-05] MEDS: HumaLOG INSULIN (NovoLOG) PER UNIT SC SCH ×3 (08:56→17:32)
[2019-09-05] MEDS: LORATADINE 10 MG TAB PO SCH (08:56)
[2019-09-05] MEDS: DULoxetine 30 MG CAP (CYMBALTA) PO SCH (08:56)
[2019-09-05] MEDS: ATORVASTATIN 10 MG TAB PO SCH (08:56)
[2019-09-05] MEDS: ASPIRIN 81 MG ENTERIC TAB PO SCH (08:56)
[2019-09-05] MEDS: PERCOCET 5MG/325MG TAB PO PRN ×2 (09:27→21:07)
--- NOTE | 2019-09-05 12:34 | IPNPDOC ---
Subjective Date Seen The patient was seen on 09/05/19. Subjective Chief Complaint/HPI Patient does not have new complains. Said could not sleep last night and different thoughts kept her awake. says her legs are still swollen, no fever or chills. Working with PT but did not do well in her initial evaluation. Objective Physical Examination General Exam: Positive: Alert, Mild Distress (leaning towards her right, reporting severe left lower back pain that is chronic and has not taken her medications in hours) Eye Exam: Positive: PERRLA, Conjunctiva & lids normal, EOMI, Other Eye Symptoms (bilateral exophthalmos); Negative: Sclera icteric, Ptosis ENT Exam: Positive: Atraumatic, Mucous membr. moist/pink, Pharynx Normal, Tongue Midline, Nares Patent Neck Exam: Positive: Supple; Negative: JVD, Lymphadenopathy Chest Exam: Positive: Clear to auscultation, Normal air movement; Negative: Rales, Rhonchi, Wheezing Heart Exam: Positive: Rate Normal, Regular Rhythm, Normal S1, Normal S2; Negative: Murmurs, Rubs Telemetry: Positive: No significant arrhythmia, Sinus Abdomen Exam: Positive: Normal bowel sounds, Soft, Other (obese, otherwise soft, non tender with normoactive bowel sounds); Negative: Tenderness, Hepatospenomegaly Extremity Exam: Positive: Edema (bilateral trace ankle edema), Normal pulses, Other (some small superficial skin peeling of right toes, otherwise no onychomycosis or significant lesions); Negative: Clubbing, Cyanosis Skin Exam: Positive: Other skin issue (some skin peeling of R sided toes with no lesions) Neuro Exam: Positive: Normal Speech, Strength at 5/5 X4 ext, Normal Tone, Sensation Intact, Cranial Nerves 3-12 NL Psych Exam: Positive: Mental status NL, Mood NL, Oriented x 3 Assessment /Plan Assessment 64 yo woman with a history of Graves on methimazole, hypertension, HLD, renal cell carcinoma s/p remote partial right nephrectomy with last known renal function to be within normal limits and diabetes on insulin and recently started on trulicity 08/31 who was brought in to [place] after being found unresponsive while babysitting her infant grandchild and noted to have severe hypoglycemia and hypothermia and TATIANA on labs at [place] was transferred to [facility] for management of persistent hypoglycemia and hypothermia c/f sepsis TATIANA resolving. It was likely multifactorial and related to hemodynamic mediated tubular injury in the setting of syncope / hypoglycemic episode / MALIK inhibitor dysautoregulation, plus metformin use, plus reported diarrhea. received IVF and creatinine down from 4.2 to 2.05 monitor I/O Hypoglycemia: resolved probably due to TATIANA from prerenal cause and being on high dose of insulin , metformin which caused hypoglycemia due to decreased renal function. will restart insulin. carb consistent diet. continue to monitor FS Metabolic encephalopathy resolved probably due to hypoglycemia and gabapentin which may have been too high dosage for her TATIANA causing confusion dosage was reduced. no confusion now. Hypothermia probably due to hypoglycemia No Sepsis No UTI, urine culture was contaminated. No symptoms, UA only 11 wbcs. stopped antibiotics. Hypomagnesemia replaced. Graves: continue home methimazole Hypertension: Hold home lisinopril due to TATIANA BP well controlled at present Chronic back pain: continue home gabapentin (renally dosed), oxy/APAP, duloxetine and tizanidine PRN Diabetes with neuropathy presented with hypoglycemia hold all home antidiabetic meds. Neuropathy: continue home gabapentin Hyperlipidemia: continue Lipitor 40 Continue Vit D and ASA 81 home meds DVT prophylaxis: heparin 5000u Q8H Plan/VTE VTE Prophylaxis Ordered?: Yes VS, I&O, 24H, Fishbone Vital Signs/I&O Vital Signs Date Time Temp Pulse Resp B/P (MAP) Pulse Ox O2 Delivery O2 Flow Rate FiO2 09/05/19 10:57 18 09/05/19 06:00 97.4 76 158/84 (108) 97 Room Air I&O- Last 24 Hours up to 6 AM 09/05/19 06:00 Intake Total 3154 ml Output Total 2225 ml Balance 929 ml Laboratory Data 24H LABS Laboratory Tests 2 09/04/19 17:04: Bedside Glucose (Misc Panel) 149H 09/04/19 20:14: Bedside Glucose (Misc Panel) 246H 09/05/19 06:17: Immature Granulocyte % (Auto) 0.2, Neutrophils (%) (Auto) 52.5, Lymphocytes (%) (Auto) 31.4, Monocytes (%) (Auto) 11.9H, Eosinophils (%) (Auto) 3.6H, Basophils (%) (Auto) 0.4, Neutrophils # (Auto) 4.3, Lymphocytes # (Auto) 2.6, Monocytes # (Auto) 1.0H, Eosinophils # (Auto) 0.3, Basophils # (Auto) 0.0, Nucleated Red Blood Cells % (auto) 0.0, Anion Gap 7L, Glomerular Filtration Rate 31.2L, Calcium Level 8.6L 09/05/19 11:27: Bedside Glucose (Misc Panel) 192H CBC/BMP Laboratory Tests 09/05/19 06:17 Microbiology Microbiology 09/01/19 Blood Culture - Preliminary, Resulted No Growth after 72 hours. All specime... 09/01/19 Urine Culture - Final, Complete DIANA MESA MD Sep 05, 2019 12:34
--- NOTE | 2019-09-05 13:09 | IPN ---
DATE: 09/05/2019 SUBJECTIVE: Chloe was seen and examined this morning at bedside. Denies any overnight events or issues. She has been working with physical therapy and still feels weak. She is voiding without any issues. Renal function continues to improve with supportive care. She denies shortness of breath. PHYSICAL EXAMINATION: Vital signs: Temperature 97.4, pulse 76, respiratory rate 17, blood pressure 158/84, saturating 97% on room air. Intake yesterday was 2.7, urine output yesterday was 2.1 liters. Weight on the bed scale today is not recorded. General: The patient is seen sitting up in bed. Awake, alert, oriented, comfortable. Elderly female appears stated age in no acute respiratory distress. Extraocular muscles are intact. There is bilateral xanthelasma. Sclerae are anicteric. Neck is supple. Jugular veins are not elevated. Heart sounds are regular S1, S2. There is 1+ edema in the left ankle and there is a trace edema on the right lower extremity. Lungs show symmetric air entry bilaterally. Diminished at the bases. Abdomen is soft and nontender. There are bowel sounds. Skin with normal temperature and turgor. Neurologic: No focal deficit. Oriented times three. Interactive and conversational. LABORATORY DATA: White count 8.3, hemoglobin 11.1. Sodium 141, potassium 4.4, BUN 31, calcium 8.6, sugar 145. MEDICATIONS: Inpatient medications reviewed by myself and no change from prior. PROBLEMS: 1. Nonoliguric acute kidney injury now resolving. Creatinine is down to 2.0 today from a peak creatinine of 4.2. It was likely multifactorial and related to hemodynamic mediated tubular injury in the setting of syncope / hypoglycemic episodes / MALIK inhibitor dysautoregulation, plus metformin use, plus reported diarrhea. She should stay off of metformin. Her MALIK inhibitor should be continued to be held until renal function has recovered to baseline. Her electrolytes, acid base and volume status are acceptable. Kidney ultrasound and urinalysis were unremarkable. 2. Hypertension. Blood pressures are acceptable, systolic 120s to 140s, and the patient is on no antihypertensives. I would continue to hold MALIK / ARB until renal function has recovered to her usual baseline. 3. Insulin dependent diabetes mellitus. I suggest the patient should also stay off of metformin given the recent acute kidney injury and I have discussed this with her as well. DISPOSITION: Nephrology is signing off at this time. The patient will follow up in the outpatient setting.
[2019-09-05 14:00] VITALS: BP 145/75
[2019-09-05] MEDS: LEVEMIR (INSULIN DETEMIR) 1 UNITS/0.01ML SC SCH (21:06)
[2019-09-05 22:00] VITALS: BP 138/71
[2019-09-06] MEDS: HEPARIN SOD (PORCINE) 5000 UNITS/ML VIAL SQ SCH ×3 (05:45→21:02)
[2019-09-06 06:00] VITALS: BP 132/76
[2019-09-06 07:01] LABS: BASO % 0.5 % (0.0-1.0); EOS # 0.3 10^3/uL (0.0-0.5); EOS % 3.9 % (0.0-3.0); HEMATOCRIT 34.8 % (36.0-47.0); HEMOGLOBIN 11.2 g/dl (12.0-15.5); LYMPH # 2.8 10^3/uL (1.5-5.0); LYMPH % 36.4 % (24.0-44.0); MEAN CORPUSCULAR HGB CONC 32.2 g/dl (32.0-36.5); MEAN CORPUSCULAR VOLUME 96.4 fl (80.0-96.0); MONO # 0.9 10^3/uL (0.0-0.8); NEUTROPHILS # 3.7 10^3/uL (1.5-8.5); NEUTROPHILS % 47.9 % (36.0-66.0); PLATELET COUNT, AUTOMATED 222 10^3/uL (150-450); RED BLOOD COUNT 3.61 10^6/uL (4.00-5.40); WHITE BLOOD COUNT 7.7 10^3/uL (4.0-10.0)
[2019-09-06 07:22] LABS: CALCIUM LEVEL 8.8 MG/DL (8.8-10.2); CREATININE FOR GFR 1.81 MG/DL (0.55-1.30); GLOMERULAR FILTRATION RATE 36.1 (>45); POTASSIUM SERUM 4.4 MEQ/L (3.5-5.1)
[2019-09-06] MEDS: GABAPENTIN 100 MG CAP PO SCH (08:18)
[2019-09-06] MEDS: DULoxetine 30 MG CAP (CYMBALTA) PO SCH (08:18)
[2019-09-06] MEDS: VITAMIN D 1,000 INTERNATIONAL UNITS TABLET PO SCH (08:19)
[2019-09-06] MEDS: LORATADINE 10 MG TAB PO SCH (08:19)
[2019-09-06] MEDS: ATORVASTATIN 10 MG TAB PO SCH (08:19)
[2019-09-06] MEDS: ASPIRIN 81 MG ENTERIC TAB PO SCH (08:19)
[2019-09-06] MEDS: HumaLOG INSULIN (NovoLOG) PER UNIT SC SCH ×3 (08:19→17:41)
--- NOTE | 2019-09-06 11:17 | IPNPDOC ---
Subjective Date Seen The patient was seen on 09/06/19. Subjective Chief Complaint/HPI feeling well today, leg swelling improving, renal function improving, worked with PT. No fever or chills, no chest pain or SOB. Objective Physical Examination General Exam: Positive: Alert, Mild Distress (leaning towards her right, reporting severe left lower back pain that is chronic and has not taken her medications in hours) Eye Exam: Positive: PERRLA, Conjunctiva & lids normal, EOMI, Other Eye Symptoms (bilateral exophthalmos); Negative: Sclera icteric, Ptosis ENT Exam: Positive: Atraumatic, Mucous membr. moist/pink, Pharynx Normal, Tongue Midline, Nares Patent Neck Exam: Positive: Supple; Negative: JVD, Lymphadenopathy Chest Exam: Positive: Clear to auscultation, Normal air movement; Negative: Rales, Rhonchi, Wheezing Heart Exam: Positive: Rate Normal, Regular Rhythm, Normal S1, Normal S2; Negative: Murmurs, Rubs Telemetry: Positive: No significant arrhythmia, Sinus Abdomen Exam: Positive: Normal bowel sounds, Soft, Other (obese, otherwise soft, non tender with normoactive bowel sounds); Negative: Tenderness, Hepatospenomegaly Extremity Exam: Positive: Edema (bilateral trace ankle edema), Normal pulses, Other (some small superficial skin peeling of right toes, otherwise no onychomycosis or significant lesions); Negative: Clubbing, Cyanosis Skin Exam: Positive: Other skin issue (some skin peeling of R sided toes with no lesions) Neuro Exam: Positive: Normal Speech, Strength at 5/5 X4 ext, Normal Tone, Sensation Intact, Cranial Nerves 3-12 NL Psych Exam: Positive: Mental status NL, Mood NL, Oriented x 3 Assessment /Plan Assessment 64 yo woman with a history of Graves on methimazole, hypertension, HLD, renal cell carcinoma s/p remote partial right nephrectomy with last known renal function to be within normal limits and diabetes on insulin and recently started on trulicity 08/31 who was brought in to [place] after being found unresponsive while babysitting her grandchild and noted to have severe hypoglycemia and hypothermia and TATIANA on labs at [place] was transferred to [facility] for management of persistent hypoglycemia and hypothermia c/f sepsis Nonoliguric TATIANA resolving. It was likely multifactorial and related to hemodynamic mediated tubular injury in the setting of syncope / hypoglycemic episode / MALIK inhibitor dysautoregulation, plus metformin use, plus reported diarrhea. received IVF and creatinine down from 4.2 to 1.8 monitor I/O Hypoglycemia: resolved probably due to TATIANA from prerenal cause and being on high dose of insulin , metformin which caused hypoglycemia due to decreased renal function. will restart insulin. carb consistent diet. continue to monitor FS Metabolic encephalopathy resolved probably due to hypoglycemia and gabapentin which may have been too high dosage for her TATIANA causing confusion dosage was reduced. no confusion now. Hypothermia probably due to hypoglycemia No Sepsis No UTI, urine culture was contaminated. No symptoms, UA only 11 wbcs. stopped antibiotics. Hypomagnesemia replaced. Graves: continue home methimazole Hypertension: Hold home lisinopril due to TATIANA BP well controlled at present Chronic back pain: continue home gabapentin (renally dosed), oxy/APAP, duloxetine and tizanidine PRN Diabetes with neuropathy presented with hypoglycemia hold all home antidiabetic meds. Neuropathy: continue home gabapentin Hyperlipidemia: continue Lipitor 40 Continue Vit D and ASA 81 home meds DVT prophylaxis: heparin 5000u Q8H Disposition: anticipate discharge in 24 hours Plan/VTE VTE Prophylaxis Ordered?: Yes VS, I&O, 24H, Fishbone Vital Signs/I&O Vital Signs Date Time Temp Pulse Resp B/P (MAP) Pulse Ox O2 Delivery O2 Flow Rate FiO2 09/06/19 06:00 96.5 84 16 132/76 (94) 95 Room Air I&O- Last 24 Hours up to 6 AM 09/06/19 06:00 Intake Total 1700 ml Output Total 900 ml Balance 800 ml Laboratory Data 24H LABS Laboratory Tests 2 09/05/19 11:27: Bedside Glucose (Misc Panel) 192H 09/05/19 16:30: Bedside Glucose (Misc Panel) 171H 09/05/19 20:53: Bedside Glucose (Misc Panel) 170H 09/06/19 05:49: Immature Granulocyte % (Auto) 0.3, Neutrophils (%) (Auto) 47.9, Lymphocytes (%) (Auto) 36.4, Monocytes (%) (Auto) 11.0H, Eosinophils (%) (Auto) 3.9H, Basophils (%) (Auto) 0.5, Neutrophils # (Auto) 3.7, Lymphocytes # (Auto) 2.8, Monocytes # (Auto) 0.9H, Eosinophils # (Auto) 0.3, Basophils # (Auto) 0.0, Nucleated Red Blood Cells % (auto) 0.0, Anion Gap 7L, Glomerular Filtration Rate 36.1L, Calcium Level 8.8 CBC/BMP Laboratory Tests 09/06/19 05:49 Microbiology Microbiology 09/01/19 Blood Culture - Preliminary, Resulted No Growth after 72 hours. All specime... 09/01/19 Urine Culture - Final, Complete DIANA MESA MD Sep 06, 2019 11:17
[2019-09-06] MEDS: PERCOCET 5MG/325MG TAB PO PRN (12:32)
[2019-09-06 14:00] VITALS: BP 170/74
[2019-09-06 14:50] VITALS: BP 154/72
[2019-09-06] MEDS ORDERED: amLODIPine 5 MG TAB PO ONE (16:00)
[2019-09-06 17:45] VITALS: BP 164/82
[2019-09-06] MEDS: LEVEMIR (INSULIN DETEMIR) 1 UNITS/0.01ML SC SCH (21:02)
[2019-09-06 22:00] VITALS: BP 167/82
[2019-09-07] MEDS: HEPARIN SOD (PORCINE) 5000 UNITS/ML VIAL SQ SCH (05:19)
[2019-09-07 06:00] VITALS: BP 147/77
[2019-09-07 06:20] LABS: BASO % 0.3 % (0.0-1.0); EOS # 0.3 10^3/uL (0.0-0.5); EOS % 3.4 % (0.0-3.0); HEMOGLOBIN 12.2 g/dl (12.0-15.5); LYMPH # 2.6 10^3/uL (1.5-5.0); LYMPH % 28.3 % (24.0-44.0); MEAN CORPUSCULAR HEMOGLOBIN 31.1 pg (27.0-33.0); MEAN CORPUSCULAR HGB CONC 32.1 g/dl (32.0-36.5); MEAN CORPUSCULAR VOLUME 96.9 fl (80.0-96.0); MONO # 0.8 10^3/uL (0.0-0.8); MONO % 9.1 % (0.0-5.0); NEUTROPHILS # 5.3 10^3/uL (1.5-8.5); NEUTROPHILS % 58.6 % (36.0-66.0); PLATELET COUNT, AUTOMATED 247 10^3/uL (150-450); RED BLOOD COUNT 3.92 10^6/uL (4.00-5.40)
[2019-09-07 06:45] LABS: CALCIUM LEVEL 8.9 MG/DL (8.8-10.2); CREATININE FOR GFR 1.62 MG/DL (0.55-1.30); POTASSIUM SERUM 4.1 MEQ/L (3.5-5.1)
[2019-09-07] MEDS: ATORVASTATIN 10 MG TAB PO SCH (08:11)
[2019-09-07] MEDS: PERCOCET 5MG/325MG TAB PO PRN (08:11)
[2019-09-07] MEDS: GABAPENTIN 100 MG CAP PO SCH (08:11)
[2019-09-07] MEDS: DULoxetine 30 MG CAP (CYMBALTA) PO SCH (08:11)
[2019-09-07] MEDS: VITAMIN D 1,000 INTERNATIONAL UNITS TABLET PO SCH (08:11)
[2019-09-07 08:12] VITALS: BP 147/77
[2019-09-07] MEDS: ASPIRIN 81 MG ENTERIC TAB PO SCH (08:12)
[2019-09-07] MEDS: HumaLOG INSULIN (NovoLOG) PER UNIT SC SCH ×2 (08:13→12:00)
[2019-09-07] MEDS: LORATADINE 10 MG TAB PO SCH (08:13)
[2019-09-07] MEDS ORDERED: amLODIPine 5 MG TAB PO SCH (09:00)
[2019-09-07] MEDS ORDERED: INSUDET SC (11:04)
[2019-09-07] MEDS ORDERED: GABA-1171 PO (11:04)
[2019-09-07] MEDS ORDERED: SITA50TAB PO (11:04)
[2019-09-07] MEDS ORDERED: AMLO5TAB6 PO (11:04)
[2019-09-07] MEDS ORDERED: PREVNAR 13 VACCINE SYRINGE (CPT CODE:90670) IM ONE (13:00)
--- NOTE | 2019-09-07 15:09 | DS.PDOC ---
Discharge Summary General Date of Admission Sep 01, 2019 at 22:09 Date of Discharge 09/07/19 Discharge Summary PROCEDURES PERFORMED DURING STAY: [None]. DISCHARGE DIAGNOSES: Hypoglycemia in a patient with Insulin dependent diabetes. Hypothermia Acute Kidney injury Metabolic encephalopathy Type 2 Diabetes with diabetic neuropathy. Chronic back pain Chronic opiate use Grave's disease hypomagnesemia Hypertension Hyperlipidemia Obesity with BMI of 35.3 COMPLICATIONS/CHIEF COMPLAINT: Symptomatic Hypoglycemia. HISTORY OF PRESENT ILLNESS: Please see history and physical HOSPITAL COURSE: 64 yo woman with a history of Graves on methimazole, hypertension, HLD, renal cell carcinoma s/p remote partial right nephrectomy with last known renal function to be within normal limits and diabetes on insulin and recently started on trulicity 08/31 who was brought in to [facility] after being found unresponsive while babysitting her grandchild and noted to have severe hypoglycemia and hypothermia and TATIANA on labs at [facility] was transferred to [facility] for management of persistent Hypoglycemia and hypothermia , metabolic encephalopathy, TATIANA. She did nto have any infectious process or sepsis. Nonoliguric TATIANA resolving. It was likely multifactorial and related to hemodynamic mediated tubular injury in the setting of syncope / hypoglycemic episode / MALIK inhibitor dysautoregulation, plus metformin use, plus reported diarrhea. Creatinine down from 4.2 to 1.68 Hypoglycemia: resolved probably due to TATIANA from prerenal cause and being on high dose of insulin , metformin which caused hypoglycemia due to decreased renal function. will restart insulin at lower dose. Levemir 20 units at HS. Continue sliding scle stopped janumet xr and only given januvia 50 mg daily. carb consistent diet. continue to monitor FS It seems like her requirement for antidiabetic medications has gone down. her sugars were well controlled int hospital with only 20 of levemir. Metabolic encephalopathy resolved probably due to hypoglycemia and gabapentin which may have been too high dosage for her TATIANA causing confusion dosage was reduced. no confusion now. Hypothermia probably due to hypoglycemia No Sepsis No UTI, urine culture was contaminated. No symptoms, UA only 11 wbcs. stopped antibiotics. Hypomagnesemia replaced. Graves: continue home methimazole Hypertension: Hold home lisinopril due to TATIANA Started on amlodipine . Chronic back pain: continue home gabapentin (renally dosed) dosed reduced can be increased once renal function improves. oxy/APAP, duloxetine and tizanidine PRN Diabetes with neuropathy presented with hypoglycemia hold all home antidiabetic meds. Neuropathy: continue home gabapentin Hyperlipidemia: continue Lipitor 40 Continue Vit D and ASA 81 home meds DVT prophylaxis: heparin 5000u Q8H Disposition: anticipate discharge in 24 hours DISCHARGE MEDICATIONS: Please see below. ALLERGIES: Please see below. PHYSICAL EXAMINATION ON DISCHARGE: VITAL SIGNS: Please see below. General Exam: Positive: Alert, Mild Distress (leaning towards her right, repo rting severe left lower back pain that is chronic and has not taken her medications in hours) Eye Exam: Positive: PERRLA, Conjunctiva & lids normal, EOMI, Other Eye Symptoms (bilateral exophthalmos); Negative: Sclera icteric, Ptosis ENT Exam: Positive: Atraumatic, Mucous membr. moist/pink, Pharynx Normal, Tongue Midline, Nares Patent Neck Exam: Positive: Supple; Negative: JVD, Lymphadenopathy Chest Exam: Positive: Clear to auscultation, Normal air movement; Negative: Rales, Rhonchi, Wheezing Heart Exam: Positive: Rate Normal, Regular Rhythm, Normal S1, Normal S2; Negative: Murmurs, Rubs Telemetry: Positive: No significant arrhythmia, Sinus Abdomen Exam: Positive: Normal bowel sounds, Soft, Other (obese, otherwise soft, non tender with normoactive bowel sounds); Negative: Tenderness, Hepatospenomegaly Extremity Exam: Positive: Edema (bilateral trace ankle edema), Normal pulses, Other (some small superficial skin peeling of right toes, otherwise no onychomycosis or significant lesions); Negative: Clubbing, Cyanosis Skin Exam: Positive: Other skin issue (some skin peeling of R sided toes with no lesions) Neuro Exam: Positive: Normal Speech, Strength at 5/5 X4 ext, Normal Tone, Sensation Intact, Cranial Nerves 3-12 NL Psych Exam: Positive: Mental status NL, Mood NL, Oriented x 3 LABORATORY DATA: Please see below. ACTIVITY: [As tolerated]. DIET: Carb consistent DISPOSITION: 01 Home, Self-Care. DISCHARGE INSTRUCTIONS: Follow up PMD in 1 to 2 weeks Continue outpatient physical therapy DISCHARGE CONDITION: [Stable]. TIME SPENT ON DISCHARGE: 35 minutes. Vital Signs/I&Os Vital Signs Date Time Temp Pulse Resp B/P (MAP) Pulse Ox O2 Delivery O2 Flow Rate FiO2 09/07/19 09:32 16 09/07/19 08:12 95 147/77 09/07/19 06:00 97.9 98 Room Air I&O- Last 24 Hours up to 6 AM0 09/07/19 06:00 Intake Total 2100 ml Balance 2100 ml Laboratory Data Labs 24H Laboratory Tests 2 09/06/19 17:02: Bedside Glucose (Misc Panel) 209H 09/06/19 20:37: Bedside Glucose (Misc Panel) 165H 09/07/19 05:28: Immature Granulocyte % (Auto) 0.3, Neutrophils (%) (Auto) 58.6, Lymphocytes (%) (Auto) 28.3, Monocytes (%) (Auto) 9.1H, Eosinophils (%) (Auto) 3.4H, Basophils (%) (Auto) 0.3, Neutrophils # (Auto) 5.3, Lymphocytes # (Auto) 2.6, Monocytes # (Auto) 0.8, Eosinophils # (Auto) 0.3, Basophils # (Auto) 0.0, Nucleated Red Blood Cells % (auto) 0.0, Anion Gap 6L, Glomerular Filtration Rate 41.0L, Calcium Level 8.9 09/07/19 11:47: Bedside Glucose (Misc Panel) 195H CBC/BMP Laboratory Tests 09/07/19 05:28 FSBS Laboratory Tests Test 09/06/19 17:02 09/06/19 20:37 09/07/19 11:47 Range/Units Bedside Glucose (Misc Panel) 209 165 195 80-115 MG/DL Microbiology Microbiology 09/01/19 Blood Culture - Final, Complete NO GROWTH AFTER 5 DAYS 09/01/19 Urine Culture - Final, Complete Discharge Medications Scheduled Amlodipine Besylate (Amlodipine Besylate) 5 Mg Tablet, 5 MG PO DAILY Aspirin (Aspirin EC) 81 Mg Tablet.dr, 81 MG PO DAILY, (Reported) Atorvastatin Calcium (Lipitor) 10 Mg Tab, 10 MG PO DAILY, (Reported) Cholecalciferol (Vitamin D3) (Vitamin D3) 1,000 Unit Tablet, 1,000 UNIT PO DAILY, (Reported) Dulaglutide (Trulicity) 0.75 Mg/0.5 Ml Pen.injctr, 0.75 MG SC 1XWK, (Reported) SUNDAY Duloxetine Hcl (Duloxetine HCl) 60 Mg Cap, 60 MG PO DAILY, (Reported) Gabapentin (Gabapentin) 100 Mg Capsule, 200 MG PO DAILY Insulin Detemir (Levemir) 100 Unit/1 Ml Vial, 20 UNITS SC QHS Insulin Human Lispro (Novolog) 100 U/Ml Inj, 1 DOSE SC AC, (Reported) PER SLIDING SCALE Loratadine (Loratadine) 10 Mg Tab, 10 MG PO DAILY, (Reported) Methimazole (Methimazole) 10 Mg Tablet, 10 MG PO DAILY, (Reported) Sitagliptin (Januvia) 50 Mg Tablet, 50 MG PO DAILY Scheduled PRN Oxycodone HCl/Acetaminophen (Oxycodone-Acetaminophen 5-325) 1 Tab Tab, 1 TAB PO Q6H PRN for PAIN, (Reported) Tizanidine HCl (Tizanidine HCl) 2 Mg Tablet, 2 MG PO TID PRN for MUSCLE SPASMS, (Reported) Allergies Coded Allergies: No Known Allergies (Unverified , 12/24/17) DIANA MESA MD Sep 07, 2019 15:06
== END 2019-09-07 13:27 | disposition home or self-care (01) | DRG 637 ==
LOC: M ICU 22:09 → M MSPAV 09-02 15:03
PROVIDERS: ADMIT Internal Medicine; ATTEND Internal Medicine Nephrology
DX: E11.649 Type 2 diabetes mellitus with hypoglycemia without coma (principal); G93.41 Metabolic encephalopathy; M62.82 Rhabdomyolysis; E87.2 Acidosis; E05.00 Thyrotoxicosis with diffuse goiter without thyrotoxic crisis or storm; I12.9 Hypertensive chronic kidney disease with stage 1 through stage 4 chronic kidney disease, or unspecified chronic kidney disease; E11.42 Type 2 diabetes mellitus with diabetic polyneuropathy; M54.9 Dorsalgia, unspecified; F17.200 Nicotine dependence, unspecified, uncomplicated; E78.5 Hyperlipidemia, unspecified; E83.42 Hypomagnesemia; N17.0 Acute kidney failure with tubular necrosis; N18.3 Chronic kidney disease, stage 3 (moderate); E11.22 Type 2 diabetes mellitus with diabetic chronic kidney disease; E66.9 Obesity, unspecified; E87.5 Hyperkalemia; E83.51 Hypocalcemia; Z68.35 Body mass index [BMI] 35.0-35.9, adult; Z85.528 Personal history of other malignant neoplasm of kidney; Z79.4 Long term (current) use of insulin; Z79.82 Long term (current) use of aspirin; Z79.899 Other long term (current) drug therapy

== ENCOUNTER → 2019-09-24 | Outpatient (REF) | payer MEDICARE, MEDICAID ==
[~2019-09-24] MED LIST changes: +AMLO5TAB6 PO; +ASPI-161 PO; +D-10TAB2 PO; +GABA-1171 PO; +JANU50TA25 PO; +METF-791 PO; +METH10TA PO; +SITA50TAB PO; +TIZA2TAB4 PO; +TRUL10IN SC
[2019-09-24 12:01] LABS: CALCIUM LEVEL 8.7 MG/DL (8.8-10.2); CREATININE FOR GFR 1.21 MG/DL (0.55-1.30); GLOMERULAR FILTRATION RATE 57.4 (>45); POTASSIUM SERUM 4.6 MEQ/L (3.5-5.1)
== END ==
LOC: M SFHCPLAZ 09:50
PROVIDERS: ATTEND Family Medicine
DX: N17.9 Acute kidney failure, unspecified (principal)
CPT/HCPCS: 36415; 80048; G0463

== ENCOUNTER → 2020-09-01 | Outpatient (REF) | payer OTHER, MEDICAID ==
[~2020-09-01] MED LIST changes: +AMLO1TAB24 PO; -AMLO5TAB6 PO; -METF-791 PO; +METF-838 PO; -TIZA2TAB4 PO; +TIZA2TAB6 PO
[2020-09-01 19:02] LABS: MAU/CREAT RATIO 177.6 MCG/MG (0.0-30.0)
== END ==
LOC: M LAB REF 17:00
PROVIDERS: ATTEND Nurse Practitioner Family
DX: E11.65 Type 2 diabetes mellitus with hyperglycemia (principal)

== ENCOUNTER → 2021-01-05 | Outpatient (REF) | payer OTHER, MEDICAID ==
[~2021-01-05] MED LIST changes: -LISI-542 PO; +LISI-898 PO; +TIZA1TAB12 PO; -TIZA2TAB6 PO
== END ==
LOC: M SFHCPLAZ 09:40
PROVIDERS: ATTEND Family Medicine
DX: E11.40 Type 2 diabetes mellitus with diabetic neuropathy, unspecified (principal)

== ENCOUNTER → 2021-08-04 | Outpatient (CLI) | payer MEDICARE, MEDICAID ==
[~2021-08-04] MED LIST changes: +GABA-283 PO; -GABA-845 PO
[2021-08-04 15:04] LABS: BASO % 0.3 % (0.0-1.0); EOS # 0.2 10^3/uL (0.0-0.5); EOS % 2.3 % (0.0-3.0); HEMATOCRIT 39.7 % (36.0-47.0); HEMOGLOBIN 12.4 g/dl (12.0-15.5); LYMPH # 2.2 10^3/uL (1.5-5.0); LYMPH % 24.1 % (24.0-44.0); MEAN CORPUSCULAR HEMOGLOBIN 30.8 pg (27.0-33.0); MEAN CORPUSCULAR HGB CONC 31.2 g/dl (32.0-36.5); MEAN CORPUSCULAR VOLUME 98.8 fl (80.0-96.0); MONO # 0.8 10^3/uL (0.0-0.8); MONO % 8.9 % (2.0-8.0); NEUTROPHILS # 5.8 10^3/uL (1.5-8.5); NEUTROPHILS % 64.1 % (36.0-66.0); PLATELET COUNT, AUTOMATED 217 10^3/uL (150-450); RED BLOOD COUNT 4.02 10^6/uL (4.00-5.40)
[2021-08-04 15:25] LABS: ALBUMIN 3.2 GM/DL (3.2-5.2); BILIRUBIN,TOTAL 0.2 MG/DL (0.2-1.0); CALCIUM LEVEL 9.4 MG/DL (8.8-10.2); CREATININE FOR GFR 1.32 MG/DL (0.55-1.30); GLOMERULAR FILTRATION RATE 51.6 (>45); POTASSIUM SERUM 4.9 MEQ/L (3.5-5.1); TOTAL PROTEIN 6.9 GM/DL (6.4-8.2)
== END ==
LOC: M PLALAB 12:25
PROVIDERS: ATTEND Student in an Organized Health Care Education/Training Program
DX: E05.00 Thyrotoxicosis with diffuse goiter without thyrotoxic crisis or storm (principal); E11.40 Type 2 diabetes mellitus with diabetic neuropathy, unspecified

== ENCOUNTER → 2021-08-04 | Outpatient (CLI) | payer MEDICARE, MEDICAID ==
[2021-08-04 15:22] LABS: HEMOGLOBIN A1c 7.2 %
[2021-08-04 15:35] LABS: FREE T4 0.85 NG/DL (0.76-1.46); THYROID STIMULATING HORMONE 0.847 uIU/ML (0.358-3.740)
== END ==
LOC: M PLALAB 12:27
PROVIDERS: ATTEND Student in an Organized Health Care Education/Training Program
DX: E11.40 Type 2 diabetes mellitus with diabetic neuropathy, unspecified (principal); E05.00 Thyrotoxicosis with diffuse goiter without thyrotoxic crisis or storm

== ENCOUNTER → 2021-09-28 | Outpatient (REF) | payer MEDICARE, MEDICAID | LOC: M SFHCPLAZ 09:52 | PROVIDERS: ATTEND Student in an Organized Health Care Education/Training Program | DX: E11.29 Type 2 diabetes mellitus with other diabetic kidney complication (principal) ==

== ENCOUNTER → 2022-01-11 | Outpatient (REF) | payer MEDICARE, MEDICAID ==
[~2022-01-11] MED LIST changes: -LISI-898 PO; +LISI5TAB11 PO
== END ==
LOC: M SFHCPLAZ 10:36
PROVIDERS: ATTEND Family Medicine
DX: E05.00 Thyrotoxicosis with diffuse goiter without thyrotoxic crisis or storm (principal); E11.9 Type 2 diabetes mellitus without complications

== ENCOUNTER → 2022-03-15 | Outpatient (REF) | payer MEDICARE, MEDICAID | LOC: M SFHCPLAZ 11:19 | PROVIDERS: ATTEND Family Medicine | DX: Z53.9 Procedure and treatment not carried out, unspecified reason (principal) ==

== ENCOUNTER → 2022-04-17 | Outpatient (CLI) | payer MEDICARE, MEDICAID ==
[2022-04-17 16:26] LABS: FREE T4 0.92 NG/DL (0.76-1.46); THYROID STIMULATING HORMONE 0.928 uIU/ML (0.358-3.740)
== END ==
LOC: M PLALAB 13:17
PROVIDERS: ATTEND Student in an Organized Health Care Education/Training Program
DX: E05.00 Thyrotoxicosis with diffuse goiter without thyrotoxic crisis or storm (principal)

== ENCOUNTER → 2022-04-17 | Outpatient (CLI) | payer MEDICARE, MEDICAID ==
[~2022-04-17] MED LIST changes: +MYRB25TA PO; +NOXI1TAB PO; +PRIM50TA6 PO
[2022-04-17 16:12] LABS: CALCIUM LEVEL 9.2 MG/DL (8.8-10.2); CREATININE FOR GFR 1.73 MG/DL (0.55-1.30); GLOMERULAR FILTRATION RATE 37.7 (>45); POTASSIUM SERUM 5.4 MEQ/L (3.5-5.1)
[2022-04-17 17:11] LABS: HEMOGLOBIN A1c 8.3 %
== END ==
LOC: M PLALAB 13:15
PROVIDERS: ATTEND Family Medicine
DX: E11.9 Type 2 diabetes mellitus without complications (principal)

== ENCOUNTER 2022-04-19 12:31 | Inpatient (IN) | payer MEDICARE, MEDICAID ==
[~2022-04-19] VITALS: Ht 177.8 cm; Wt 109.8 kg
[~2022-04-19 12:31] MED LIST changes: -MYRB25TA PO; -NOXI1TAB PO; -PRIM50TA6 PO
[2022-04-19] MEDS ORDERED: NS 500 ML IV ONE (13:50)
[2022-04-19 14:38] LABS: BASO % 0.4 % (0.0-1.0); EOS # 0.2 10^3/uL (0.0-0.5); EOS % 2.6 % (0.0-3.0); HEMATOCRIT 40.7 % (36.0-47.0); HEMOGLOBIN 12.5 g/dl (12.0-15.5); LYMPH # 2.2 10^3/uL (1.5-5.0); LYMPH % 24.4 % (24.0-44.0); MEAN CORPUSCULAR HEMOGLOBIN 30.3 pg (27.0-33.0); MEAN CORPUSCULAR HGB CONC 30.7 g/dl (32.0-36.5); MEAN CORPUSCULAR VOLUME 98.5 fl (80.0-96.0); MONO # 0.9 10^3/uL (0.0-0.8); MONO % 9.2 % (2.0-8.0); NEUTROPHILS # 5.8 10^3/uL (1.5-8.5); NEUTROPHILS % 63.2 % (36.0-66.0); PLATELET COUNT, AUTOMATED 215 10^3/uL (150-450); RED BLOOD COUNT 4.13 10^6/uL (4.00-5.40); WHITE BLOOD COUNT 9.2 10^3/uL (4.0-10.0)
[2022-04-19 15:02] LABS: ALBUMIN 3.5 GM/DL (3.2-5.2); BILIRUBIN,DIRECT 0.1 MG/DL (0.0-0.2); BILIRUBIN,TOTAL 0.6 MG/DL (0.2-1.0); CALCIUM LEVEL 8.3 MG/DL (8.8-10.2); CREATININE FOR GFR 2.25 MG/DL (0.55-1.30); GLOMERULAR FILTRATION RATE 27.8 (>45); TOTAL PROTEIN 7.4 GM/DL (6.4-8.2)
[2022-04-19] MEDS ORDERED: cefTRIAXone SOD 1 GM in D5W MINI-BAG PLUS 50 ML IV ONE (16:05)
[2022-04-19 18:13] LABS: RSV AMPLIFICATION NEGATIVE (NEGATIVE)
[2022-04-19] MEDS ORDERED: INSUDET SC (18:45)
[2022-04-19] MEDS ORDERED: NOXI1TAB PO (18:45)
[2022-04-19] MEDS ORDERED: SITA50TAB PO (18:45)
[2022-04-19] MEDS ORDERED: PRIM50TA6 PO (18:48)
[2022-04-19] MEDS ORDERED: MYRB25TA PO (18:48)
[2022-04-19] MEDS ORDERED: JANU50TA25 PO (18:48)
[2022-04-19] MEDS ORDERED: HOME MED LIST COMPLETE! XX SCH (18:50)
[2022-04-19] MEDS ORDERED: tiZANidine 4 MG TAB PO PRN (19:00)
[2022-04-19] MEDS ORDERED: ACETAMINOPHEN TAB 650MG DOSE (2X325MG) PO PRN (19:00)
[2022-04-19] MEDS ORDERED: MAALOX 30 ML SUSP *UDC PO PRN (19:00)
[2022-04-19] MEDS ORDERED: GLUCOSE 4GM CHEW TABLET PO PRN (20:00)
[2022-04-19] MEDS ORDERED: GLUCAGON INJ 1MG VIAL SC PRN (20:00)
[2022-04-19] MEDS ORDERED: SOD POLYSTYRENE SULFONATE SUSP 15GM 60ML UD PO ONE (20:00)
[2022-04-19] MEDS ORDERED: DEXTROSE 50% 50 ML SYRINGE IV PRN (20:00)
[2022-04-19] MEDS ORDERED: PATIROMER SORBITEX CALCIUM 8.4 GM POWDER PACKET (VELTASSA) PO ONE (21:00)
[2022-04-19] MEDS: INSULIN LISPRO (NovoLOG) PER UNIT SC SCH (21:08)
[2022-04-19] MEDS: DULoxetine 30MG CAPSULE (CYMBALTA) PO SCH (22:46)
[2022-04-19] MEDS: HEPARIN SOD (PORCINE) 5000UNITS/ML 1ML VIAL/SYRINGE SC SCH (22:46)
[2022-04-19] MEDS: NS 1,000 ML IV SCH (22:47)
[2022-04-19] MEDS: LEVEMIR (INSULIN DETEMIR) 1 UNITS/0.01ML SC SCH (22:47)
[2022-04-19 22:50] VITALS: BP 130/57
[2022-04-20] MEDS: PRIMIDONE 50MG TAB PO SCH ×3 (00:01→20:16)
[2022-04-20 06:00] VITALS: BP 114/80
[2022-04-20 06:12] LABS: BASO % 0.4 % (0.0-1.0); EOS # 0.2 10^3/uL (0.0-0.5); EOS % 2.7 % (0.0-3.0); HEMATOCRIT 34.1 % (36.0-47.0); HEMOGLOBIN 10.9 g/dl (12.0-15.5); LYMPH # 2.4 10^3/uL (1.5-5.0); MEAN CORPUSCULAR HEMOGLOBIN 31.6 pg (27.0-33.0); MEAN CORPUSCULAR VOLUME 98.8 fl (80.0-96.0); MONO # 0.9 10^3/uL (0.0-0.8); MONO % 12.7 % (2.0-8.0); NEUTROPHILS # 3.5 10^3/uL (1.5-8.5); NEUTROPHILS % 49.9 % (36.0-66.0); PLATELET COUNT, AUTOMATED 197 10^3/uL (150-450); RED BLOOD COUNT 3.45 10^6/uL (4.00-5.40)
[2022-04-20 06:48] LABS: BILIRUBIN,TOTAL 0.2 MG/DL (0.2-1.0); CALCIUM LEVEL 7.9 MG/DL (8.8-10.2); CREATININE FOR GFR 1.98 MG/DL (0.55-1.30); GLOMERULAR FILTRATION RATE 32.2 (>45); POTASSIUM SERUM 4.8 MEQ/L (3.5-5.1); TOTAL PROTEIN 6.5 GM/DL (6.4-8.2)
[2022-04-20] MEDS: INSULIN LISPRO (NovoLOG) PER UNIT SC SCH ×4 (07:30→21:00)
[2022-04-20] MEDS: HEPARIN SOD (PORCINE) 5000UNITS/ML 1ML VIAL/SYRINGE SC SCH ×3 (07:45→22:10)
[2022-04-20] MEDS: NS 1,000 ML IV SCH ×2 (07:52→11:10)
[2022-04-20] MEDS: ASPIRIN 81MG ENTERIC TABLET PO SCH (08:24)
[2022-04-20] MEDS: DULoxetine 30MG CAPSULE (CYMBALTA) PO SCH ×2 (08:24→20:16)
[2022-04-20] MEDS: LORATADINE 10 MG TAB PO SCH (08:24)
[2022-04-20] MEDS: PERCOCET 5MG/325MG TAB PO PRN (09:32)
[2022-04-20 14:00] VITALS: BP 121/76
[2022-04-20] MEDS: cefTRIAXone SOD 1 GM in D5W MINI-BAG PLUS 50 ML IV SCH (16:14)
[2022-04-20] MEDS ORDERED: VANCOMYCIN HCL 1,000 MG, VIAL MATE ADAPTER 1 EACH in NS 250 ML IV SCH (18:35)
[2022-04-20] MEDS ORDERED: VANCOMYCIN HCL 1,000 MG, VIAL MATE ADAPTER 1 EACH in NS 250 ML IV ONE ×2 (20:00→21:00)
[2022-04-20] MEDS: LEVEMIR (INSULIN DETEMIR) 1 UNITS/0.01ML SC SCH (20:15)
[2022-04-20 21:04] LABS: CREATININE,RANDOM URINE 90.5 MG/DL
[2022-04-20 22:00] VITALS: BP 142/70
[2022-04-21] MEDS: HEPARIN SOD (PORCINE) 5000UNITS/ML 1ML VIAL/SYRINGE SC SCH ×3 (05:48→21:37)
[2022-04-21 06:00] VITALS: BP 132/68
[2022-04-21 06:04] LABS: BASO % 0.3 % (0.0-1.0); EOS # 0.2 10^3/uL (0.0-0.5); EOS % 3.5 % (0.0-3.0); HEMATOCRIT 35.7 % (36.0-47.0); HEMOGLOBIN 11.2 g/dl (12.0-15.5); LYMPH # 2.4 10^3/uL (1.5-5.0); LYMPH % 38.8 % (24.0-44.0); MEAN CORPUSCULAR HEMOGLOBIN 30.5 pg (27.0-33.0); MEAN CORPUSCULAR HGB CONC 31.4 g/dl (32.0-36.5); MEAN CORPUSCULAR VOLUME 97.3 fl (80.0-96.0); MONO # 0.7 10^3/uL (0.0-0.8); MONO % 11.1 % (2.0-8.0); NEUTROPHILS # 2.9 10^3/uL (1.5-8.5); PLATELET COUNT, AUTOMATED 184 10^3/uL (150-450); RED BLOOD COUNT 3.67 10^6/uL (4.00-5.40); WHITE BLOOD COUNT 6.2 10^3/uL (4.0-10.0)
[2022-04-21 06:47] LABS: ALBUMIN 3.1 GM/DL (3.2-5.2); BILIRUBIN,TOTAL 0.1 MG/DL (0.2-1.0); CREATININE FOR GFR 1.58 MG/DL (0.55-1.30); GLOMERULAR FILTRATION RATE 41.8 (>45); POTASSIUM SERUM 4.8 MEQ/L (3.5-5.1); TOTAL PROTEIN 6.7 GM/DL (6.4-8.2)
[2022-04-21] MEDS: INSULIN LISPRO (NovoLOG) PER UNIT SC SCH ×4 (07:30→21:00)
[2022-04-21 07:39] LABS: VANCOMYCIN RANDOM 18.4 UG/ML
[2022-04-21] MEDS ORDERED: VANCOMYCIN HCL 750 MG, VIAL MATE ADAPTER 1 EACH in NS 250 ML IV SCH (08:00)
[2022-04-21] MEDS: ASPIRIN 81MG ENTERIC TABLET PO SCH (08:50)
[2022-04-21] MEDS: LORATADINE 10 MG TAB PO SCH (08:51)
[2022-04-21] MEDS: DULoxetine 30MG CAPSULE (CYMBALTA) PO SCH ×2 (08:51→21:32)
[2022-04-21] MEDS: PRIMIDONE 50MG TAB PO SCH ×2 (08:51→21:33)
[2022-04-21] MEDS: VANCOMYCIN HCL 750 MG, VIAL MATE ADAPTER 1 EACH in NS 250 ML IV SCH (08:52)
[2022-04-21] MEDS: PERCOCET 5MG/325MG TAB PO PRN (08:56)
[2022-04-21] MEDS ORDERED: VANCOMYCIN HCL 500 MG in D5W MINI-BAG PLUS 100 ML IV SCH (09:00)
[2022-04-21] MEDS: VANCOMYCIN HCL 500 MG in D5W MINI-BAG PLUS 100 ML IV SCH (10:11)
[2022-04-21 14:00] VITALS: BP 126/78
[2022-04-21] MEDS: cefTRIAXone SOD 1 GM in D5W MINI-BAG PLUS 50 ML IV SCH (16:47)
[2022-04-21] MEDS: LEVEMIR (INSULIN DETEMIR) 1 UNITS/0.01ML SC SCH (21:38)
[2022-04-21 22:00] VITALS: BP 154/74
[2022-04-22 05:41] LABS: BASO % 0.5 % (0.0-1.0); EOS # 0.3 10^3/uL (0.0-0.5); EOS % 4.7 % (0.0-3.0); HEMOGLOBIN 11.6 g/dl (12.0-15.5); LYMPH # 2.2 10^3/uL (1.5-5.0); LYMPH % 36.7 % (24.0-44.0); MEAN CORPUSCULAR HEMOGLOBIN 30.9 pg (27.0-33.0); MEAN CORPUSCULAR HGB CONC 31.4 g/dl (32.0-36.5); MEAN CORPUSCULAR VOLUME 98.4 fl (80.0-96.0); MONO # 0.6 10^3/uL (0.0-0.8); MONO % 10.2 % (2.0-8.0); NEUTROPHILS # 2.9 10^3/uL (1.5-8.5); NEUTROPHILS % 47.6 % (36.0-66.0); PLATELET COUNT, AUTOMATED 213 10^3/uL (150-450); RED BLOOD COUNT 3.76 10^6/uL (4.00-5.40)
[2022-04-22 06:00] VITALS: BP 159/76
[2022-04-22 06:06] LABS: ALBUMIN 3.3 GM/DL (3.2-5.2); BILIRUBIN,TOTAL 0.1 MG/DL (0.2-1.0); CALCIUM LEVEL 8.7 MG/DL (8.8-10.2); CREATININE FOR GFR 1.46 MG/DL (0.55-1.30); GLOMERULAR FILTRATION RATE 45.8 (>45); MAGNESIUM LEVEL 2.1 MG/DL (1.8-2.4); POTASSIUM SERUM 4.5 MEQ/L (3.5-5.1); TOTAL PROTEIN 7.2 GM/DL (6.4-8.2)
[2022-04-22] MEDS: HEPARIN SOD (PORCINE) 5000UNITS/ML 1ML VIAL/SYRINGE SC SCH ×3 (07:15→21:11)
[2022-04-22] MEDS: PRIMIDONE 50MG TAB PO SCH ×2 (08:16→21:12)
[2022-04-22] MEDS: VANCOMYCIN HCL 750 MG, VIAL MATE ADAPTER 1 EACH in NS 250 ML IV SCH (08:16)
[2022-04-22] MEDS: DULoxetine 30MG CAPSULE (CYMBALTA) PO SCH ×2 (08:16→21:11)
[2022-04-22] MEDS: ASPIRIN 81MG ENTERIC TABLET PO SCH (08:16)
[2022-04-22] MEDS: LORATADINE 10 MG TAB PO SCH (08:16)
[2022-04-22] MEDS: INSULIN LISPRO (NovoLOG) PER UNIT SC SCH ×4 (08:17→21:00)
[2022-04-22] MEDS: VANCOMYCIN HCL 500 MG in D5W MINI-BAG PLUS 100 ML IV SCH (11:05)
[2022-04-22 14:00] VITALS: BP 144/70
[2022-04-22] MEDS: cefTRIAXone SOD 1 GM in D5W MINI-BAG PLUS 50 ML IV SCH (17:22)
[2022-04-22] MEDS: LEVEMIR (INSULIN DETEMIR) 1 UNITS/0.01ML SC SCH (21:10)
[2022-04-22 22:00] VITALS: BP 150/70
[2022-04-23] MEDS: HEPARIN SOD (PORCINE) 5000UNITS/ML 1ML VIAL/SYRINGE SC SCH ×3 (05:11→21:44)
[2022-04-23 06:00] VITALS: BP 155/87
[2022-04-23 07:03] LABS: BASO # 0.1 10^3/uL (0.0-0.2); BASO % 0.7 % (0.0-1.0); EOS # 0.3 10^3/uL (0.0-0.5); EOS % 3.9 % (0.0-3.0); HEMOGLOBIN 11.5 g/dl (12.0-15.5); LYMPH % 43.3 % (24.0-44.0); MEAN CORPUSCULAR HEMOGLOBIN 31.5 pg (27.0-33.0); MEAN CORPUSCULAR HGB CONC 31.9 g/dl (32.0-36.5); MEAN CORPUSCULAR VOLUME 98.6 fl (80.0-96.0); MONO # 0.7 10^3/uL (0.0-0.8); MONO % 10.3 % (2.0-8.0); NEUTROPHILS # 2.9 10^3/uL (1.5-8.5); NEUTROPHILS % 41.5 % (36.0-66.0); PLATELET COUNT, AUTOMATED 203 10^3/uL (150-450); RED BLOOD COUNT 3.65 10^6/uL (4.00-5.40); WHITE BLOOD COUNT 6.9 10^3/uL (4.0-10.0)
[2022-04-23 07:29] LABS: ALBUMIN 3.1 GM/DL (3.2-5.2); BILIRUBIN,TOTAL 0.1 MG/DL (0.2-1.0); CALCIUM LEVEL 8.7 MG/DL (8.8-10.2); CREATININE FOR GFR 1.6 MG/DL (0.55-1.30); GLOMERULAR FILTRATION RATE 41.2 (>45); MAGNESIUM LEVEL 2.1 MG/DL (1.8-2.4); POTASSIUM SERUM 4.5 MEQ/L (3.5-5.1)
[2022-04-23] MEDS: INSULIN LISPRO (NovoLOG) PER UNIT SC SCH ×4 (07:30→21:43)
[2022-04-23] MEDS: VANCOMYCIN HCL 750 MG, VIAL MATE ADAPTER 1 EACH in NS 250 ML IV SCH (08:38)
[2022-04-23] MEDS: LORATADINE 10 MG TAB PO SCH (08:39)
[2022-04-23] MEDS: ASPIRIN 81MG ENTERIC TABLET PO SCH (08:39)
[2022-04-23] MEDS: PRIMIDONE 50MG TAB PO SCH ×2 (08:39→21:41)
[2022-04-23] MEDS: DULoxetine 30MG CAPSULE (CYMBALTA) PO SCH ×2 (08:40→21:41)
[2022-04-23] MEDS: VANCOMYCIN HCL 500 MG in D5W MINI-BAG PLUS 100 ML IV SCH (10:01)
[2022-04-23] MEDS: amLODIPine 5 MG TAB PO SCH (13:55)
[2022-04-23 14:00] VITALS: BP 123/60
[2022-04-23] MEDS: cefTRIAXone SOD 1 GM in D5W MINI-BAG PLUS 50 ML IV SCH (17:11)
[2022-04-23 21:00] VITALS: BP 125/60
[2022-04-23] MEDS: LEVEMIR (INSULIN DETEMIR) 1 UNITS/0.01ML SC SCH (21:44)
[2022-04-24 05:27] VITALS: BP 166/88
[2022-04-24] MEDS ORDERED: MOM 30ML SUSPENSION UDC PO PRN (05:30)
[2022-04-24] MEDS ORDERED: DOCUSATE SODIUM 100MG CAPSULE PO PRN (05:30)
[2022-04-24] MEDS: HEPARIN SOD (PORCINE) 5000UNITS/ML 1ML VIAL/SYRINGE SC SCH (05:46)
[2022-04-24] MEDS: INSULIN LISPRO (NovoLOG) PER UNIT SC SCH ×2 (07:30→12:38)
[2022-04-24 07:39] LABS: BASO % 0.4 % (0.0-1.0); EOS # 0.3 10^3/uL (0.0-0.5); EOS % 4.6 % (0.0-3.0); HEMATOCRIT 36.3 % (36.0-47.0); HEMOGLOBIN 11.2 g/dl (12.0-15.5); LYMPH # 2.2 10^3/uL (1.5-5.0); LYMPH % 32.1 % (24.0-44.0); MEAN CORPUSCULAR HEMOGLOBIN 30.3 pg (27.0-33.0); MEAN CORPUSCULAR HGB CONC 30.9 g/dl (32.0-36.5); MEAN CORPUSCULAR VOLUME 98.1 fl (80.0-96.0); MONO # 0.8 10^3/uL (0.0-0.8); MONO % 11.4 % (2.0-8.0); NEUTROPHILS # 3.5 10^3/uL (1.5-8.5); NEUTROPHILS % 51.2 % (36.0-66.0); PLATELET COUNT, AUTOMATED 192 10^3/uL (150-450); WHITE BLOOD COUNT 6.8 10^3/uL (4.0-10.0)
[2022-04-24 08:08] LABS: ALBUMIN 3.1 GM/DL (3.2-5.2); BILIRUBIN,TOTAL 0.2 MG/DL (0.2-1.0); C REACTIVE PROTEIN QUANTITATIV 0.3 MG/DL (0.00-0.30); CALCIUM LEVEL 8.7 MG/DL (8.8-10.2); CREATININE FOR GFR 1.51 MG/DL (0.55-1.30); GLOMERULAR FILTRATION RATE 44.1 (>45); MAGNESIUM LEVEL 2.1 MG/DL (1.8-2.4); POTASSIUM SERUM 4.7 MEQ/L (3.5-5.1); TOTAL PROTEIN 6.8 GM/DL (6.4-8.2); VANCOMYCIN LEVEL TROUGH 14.9 UG/ML (10.0-20.0)
[2022-04-24] MEDS: ASPIRIN 81MG ENTERIC TABLET PO SCH (09:34)
[2022-04-24] MEDS: DULoxetine 30MG CAPSULE (CYMBALTA) PO SCH (09:34)
[2022-04-24] MEDS: VANCOMYCIN HCL 750 MG, VIAL MATE ADAPTER 1 EACH in NS 250 ML IV SCH (09:34)
[2022-04-24] MEDS: PRIMIDONE 50MG TAB PO SCH (09:34)
[2022-04-24] MEDS: LORATADINE 10 MG TAB PO SCH (09:34)
[2022-04-24 09:37] VITALS: BP 147/73
[2022-04-24] MEDS: amLODIPine 5 MG TAB PO SCH (09:37)
[2022-04-24] MEDS: VANCOMYCIN HCL 500 MG in D5W MINI-BAG PLUS 100 ML IV SCH (10:39)
[2022-04-24] MEDS ORDERED: AMLO1TAB24 PO (10:58)
== END 2022-04-24 13:54 | disposition home or self-care (01) | DRG 683 ==
LOC: M ED 12:31 → EDBD 12:31 → M ED INP 19:00 → ENRESERV 20:22 → M MSPAV 22:41
PROVIDERS: ADMIT Family Medicine; ATTEND Family Medicine
DX: N17.9 Acute kidney failure, unspecified (principal); N39.0 Urinary tract infection, site not specified; R78.81 Bacteremia; E05.00 Thyrotoxicosis with diffuse goiter without thyrotoxic crisis or storm; M54.9 Dorsalgia, unspecified; R33.9 Retention of urine, unspecified; E11.42 Type 2 diabetes mellitus with diabetic polyneuropathy; I12.9 Hypertensive chronic kidney disease with stage 1 through stage 4 chronic kidney disease, or unspecified chronic kidney disease; E86.0 Dehydration; E87.5 Hyperkalemia; B95.7 Other staphylococcus as the cause of diseases classified elsewhere; F17.200 Nicotine dependence, unspecified, uncomplicated; N18.9 Chronic kidney disease, unspecified; E11.22 Type 2 diabetes mellitus with diabetic chronic kidney disease; Z79.82 Long term (current) use of aspirin; Z79.4 Long term (current) use of insulin; Z79.899 Other long term (current) drug therapy; Z85.528 Personal history of other malignant neoplasm of kidney; Z90.5 Acquired absence of kidney

== ENCOUNTER → 2022-05-02 | Outpatient (REF) | payer MEDICARE, MEDICAID ==
[~2022-05-02] MED LIST changes: +MYRB25TA PO; +NOXI1TAB PO; +PRIM50TA6 PO
== END ==
LOC: M SFHCPLAZ 10:45
PROVIDERS: ATTEND Family Medicine
DX: N18.32 Chronic kidney disease, stage 3b (principal)

== ENCOUNTER → 2023-03-06 | Outpatient (CLI) | payer MEDICARE, MEDICAID ==
[2023-03-06 15:51] LABS: BASO # 0.1 10^3/uL (0.0-0.2); BASO % 0.5 % (0.0-1.0); EOS # 0.3 10^3/uL (0.0-0.5); EOS % 2.3 % (0.0-3.0); HEMATOCRIT 42.9 % (36.0-47.0); HEMOGLOBIN 13.4 g/dl (12.0-15.5); LYMPH # 3.7 10^3/uL (1.5-5.0); LYMPH % 34.4 % (24.0-44.0); MEAN CORPUSCULAR HEMOGLOBIN 29.5 pg (27.0-33.0); MEAN CORPUSCULAR HGB CONC 31.2 g/dl (32.0-36.5); MEAN CORPUSCULAR VOLUME 94.5 fl (80.0-96.0); MONO # 0.9 10^3/uL (0.0-0.8); MONO % 8.1 % (2.0-8.0); NEUTROPHILS # 5.8 10^3/uL (1.5-8.5); NEUTROPHILS % 54.3 % (36.0-66.0); PLATELET COUNT, AUTOMATED 257 10^3/uL (150-450); RED BLOOD COUNT 4.54 10^6/uL (4.00-5.40); WHITE BLOOD COUNT 10.6 10^3/uL (4.0-10.0)
[2023-03-06 16:22] LABS: THYROID STIMULATING HORMONE 1.378 uIU/ML (0.55-4.78)
[2023-03-06 16:23] LABS: FREE T4 1.09 NG/DL (0.89-1.76)
[2023-03-06 16:25] LABS: THYROID PEROXIDASE ANTIBODY < 28.0 U/ML (<60.0)
== END ==
LOC: M PLALAB 13:55
PROVIDERS: ATTEND Student in an Organized Health Care Education/Training Program
DX: E11.9 Type 2 diabetes mellitus without complications (principal); E05.00 Thyrotoxicosis with diffuse goiter without thyrotoxic crisis or storm

== ENCOUNTER → 2023-03-06 | Outpatient (CLI) | payer MEDICARE, MEDICAID ==
[2023-03-06 16:03] LABS: HEMOGLOBIN A1c 13.1 % (4.0-6.0)
[2023-03-06 16:17] LABS: ALBUMIN 3.2 G/DL (3.2-5.2); BILIRUBIN,TOTAL 0.4 MG/DL (0.3-1.2); CALCIUM LEVEL 8.8 MG/DL (8.3-10.6); CHOLESTEROL RISK RATIO 2.48 (<5); CREATININE FOR GFR 1.69 MG/DL (0.55-1.30); GLOMERULAR FILTRATION RATE 38.6 (>39); HDL CHOLESTEROL 67.5 MG/DL (>40); LDL CHOLESTEROL 78.5 MG/DL (<100); NON-HDL-C 100.5 MG/DL; POTASSIUM SERUM 5.3 MMOL/L (3.5-5.1); TOTAL PROTEIN 7.4 G/DL (5.7-8.2)
== END ==
LOC: M PLALAB 13:57
PROVIDERS: ATTEND Student in an Organized Health Care Education/Training Program
DX: E11.9 Type 2 diabetes mellitus without complications (principal)

== ENCOUNTER 2023-03-07 17:48 | Emergency (ER) | payer MEDICARE, MEDICAID ==
[~2023-03-07] VITALS: Ht 180.3 cm; Wt 105.5 kg
[2023-03-07 18:42] LABS: BASO % 0.5 % (0.0-1.0); EOS # 0.3 10^3/uL (0.0-0.5); EOS % 3.8 % (0.0-3.0); HEMATOCRIT 37.9 % (36.0-47.0); LYMPH # 2.5 10^3/uL (1.5-5.0); LYMPH % 30.6 % (24.0-44.0); MEAN CORPUSCULAR HEMOGLOBIN 30.1 pg (27.0-33.0); MEAN CORPUSCULAR HGB CONC 31.7 g/dl (32.0-36.5); MONO # 0.6 10^3/uL (0.0-0.8); MONO % 7.7 % (2.0-8.0); NEUTROPHILS # 4.7 10^3/uL (1.5-8.5); NEUTROPHILS % 57.2 % (36.0-66.0); PLATELET COUNT, AUTOMATED 235 10^3/uL (150-450); RED BLOOD COUNT 3.99 10^6/uL (4.00-5.40); WHITE BLOOD COUNT 8.2 10^3/uL (4.0-10.0)
[2023-03-07 19:05] LABS: HEMOGLOBIN A1c 13.1 % (4.0-6.0)
[2023-03-07 19:15] VITALS: BP 135/71
[2023-03-07 20:24] LABS: ALBUMIN 2.8 G/DL (3.2-5.2); ALKALINE PHOSPHATASE 122 U/L (46-116); ALT/SGPT 21 U/L (7.0-40); AST/SGOT 11 U/L (<34); BILIRUBIN,DIRECT < 0.1 MG/DL (<0.4); BILIRUBIN,TOTAL 0.2 MG/DL (0.3-1.2); BLOOD UREA NITROGEN 44 MG/DL (9-23); CALCIUM LEVEL 8.1 MG/DL (8.3-10.6); CARBON DIOXIDE LEVEL 22 MMOL/L (20-31); CHLORIDE LEVEL 105 MMOL/L (98-107); CREATININE FOR GFR 1.83 MG/DL (0.55-1.30); GLOMERULAR FILTRATION RATE 35.2 (>39); GLUCOSE, FASTING 407 MG/DL (74-106); POTASSIUM SERUM 5.1 MMOL/L (3.5-5.1); SODIUM LEVEL 133 MMOL/L (136-145); TOTAL PROTEIN 6.7 G/DL (5.7-8.2)
[2023-03-07] MEDS ORDERED: NS 500 ML IV ONE (20:30)
== END 2023-03-07 22:26 | disposition home or self-care (01) ==
LOC: M ED 17:48 → EDBD 17:48 → M ED 22:26
DX: E11.65 Type 2 diabetes mellitus with hyperglycemia (principal); E86.0 Dehydration; Z86.73 Personal history of transient ischemic attack (TIA), and cerebral infarction without residual deficits; Z79.899 Other long term (current) drug therapy; Z79.4 Long term (current) use of insulin; Z79.82 Long term (current) use of aspirin

== ENCOUNTER 2023-06-15 16:35 | Emergency (ER) | payer MEDICARE, MEDICAID ==
[~2023-06-15] VITALS: Ht 177.8 cm; Wt 109.1 kg
[~2023-06-15 16:35] MED LIST changes: -GABA-283 PO; +GABA-284 PO
[2023-06-15] MEDS ORDERED: SITA50TAB (20:05)
[2023-06-15] MEDS ORDERED: FURO20TA2 (20:05)
[2023-06-15 21:20] VITALS: BP 141/75; TEMP 98.4; O2SAT 97
== END 2023-06-15 21:30 | disposition home or self-care (01) ==
LOC: M ED 16:35
DX: R60.9 Edema, unspecified (principal); E11.610 Type 2 diabetes mellitus with diabetic neuropathic arthropathy; E05.00 Thyrotoxicosis with diffuse goiter without thyrotoxic crisis or storm; F17.200 Nicotine dependence, unspecified, uncomplicated; Z79.82 Long term (current) use of aspirin; Z79.899 Other long term (current) drug therapy; Z79.4 Long term (current) use of insulin
CPT/HCPCS: 93971; 99283; G0463

== ENCOUNTER → 2024-02-19 | Outpatient (REF) | payer MEDICARE, MEDICAID ==
[~2024-02-19] MED LIST changes: -ASPI-161 PO; +ASPI-615 PO; +FURO20TA2; +SITA50TAB
== END ==
LOC: M SFHCPLAZ 12:13
PROVIDERS: ATTEND Student in an Organized Health Care Education/Training Program
DX: R35.0 Frequency of micturition (principal)

== ENCOUNTER → 2024-02-26 | Outpatient (CLI) | payer MEDICARE, MEDICAID ==
[2024-02-26 15:30] LABS: BASO % 0.3 % (0.0-1.0); EOS # 0.2 10^3/uL (0.0-0.5); EOS % 2.5 % (0.0-3.0); HEMATOCRIT 39.8 % (36.0-47.0); HEMOGLOBIN 12.5 g/dl (12.0-15.5); LYMPH % 22.1 % (24.0-44.0); MEAN CORPUSCULAR HEMOGLOBIN 30.3 pg (27.0-33.0); MEAN CORPUSCULAR HGB CONC 31.4 g/dl (32.0-36.5); MEAN CORPUSCULAR VOLUME 96.6 fl (80.0-96.0); MONO # 0.8 10^3/uL (0.0-0.8); MONO % 8.5 % (2.0-8.0); NEUTROPHILS # 5.9 10^3/uL (1.5-8.5); NEUTROPHILS % 66.3 % (36.0-66.0); PLATELET COUNT, AUTOMATED 226 10^3/uL (150-450); RED BLOOD COUNT 4.12 10^6/uL (4.00-5.40); WHITE BLOOD COUNT 8.8 10^3/uL (4.0-10.0)
[2024-02-26 15:42] LABS: HEMOGLOBIN A1c 10.7 % (4.0-6.0)
[2024-02-26 15:50] LABS: THYROXINE (T4) 8.6 UG/DL (4.5-10.9)
[2024-02-26 15:51] LABS: THYROID STIMULATING HORMONE 0.802 uIU/ML (0.55-4.78); TOTAL 25(OH) VITAMIN D 19.3 NG/ML (20.0-100.0)
[2024-02-26 16:06] LABS: ALBUMIN 2.6 G/DL (3.2-5.2); ALKALINE PHOSPHATASE 161 U/L (46-116); ALT/SGPT 21 U/L (7.0-40); AST/SGOT 10 U/L (<34); BILIRUBIN,DIRECT < 0.1 MG/DL (<0.4); BILIRUBIN,TOTAL < 0.2 MG/DL (0.3-1.2); BLOOD UREA NITROGEN 24 MG/DL (9-23); CALCIUM LEVEL 8.1 MG/DL (8.3-10.6); CARBON DIOXIDE LEVEL 27 MMOL/L (20-31); CHLORIDE LEVEL 105 MMOL/L (98-107); CREATININE FOR GFR 1.13 MG/DL (0.55-1.30); GLOMERULAR FILTRATION RATE > 60.0 (>39); GLUCOSE, FASTING 436 MG/DL (74-106); PHOSPHORUS LEVEL 3.7 MG/DL (2.4-5.1); POTASSIUM SERUM 4.9 MMOL/L (3.5-5.1); SODIUM LEVEL 138 MMOL/L (136-145); T UPTAKE 34.7 % (22.5-37.0); THYROID PEROXIDASE ANTIBODY 46 U/ML (<60.0); TOTAL PROTEIN 6.6 G/DL (5.7-8.2)
[2024-02-28 08:12] LABS: THYROID STIMULATING IMMUNOGLOB <0.10 IU/L (0.00-0.55); TSH RECEPTOR ASSAY <1.10 IU/L (0.00-1.75)
== END ==
LOC: M PLALAB 11:22
PROVIDERS: ATTEND Student in an Organized Health Care Education/Training Program
DX: Z00.00 Encounter for general adult medical examination without abnormal findings (principal); E05.00 Thyrotoxicosis with diffuse goiter without thyrotoxic crisis or storm; E11.65 Type 2 diabetes mellitus with hyperglycemia; Z79.4 Long term (current) use of insulin